=== PATIENT | female | born 1935 | race Caucasian/White ===

== ENCOUNTER 2022-06-05 17:31 | Inpatient (IN) | payer MEDICARE, OTHER ==
[~2022-06-05] VITALS: Ht 149.9 cm; Wt 124.9 kg
[2022-06-05 17:55] LABS: HEMATOCRIT 36.1 % (31.2-41.9); MEAN CORPUSCULAR HEMOGLOBIN 30.4 uug (24.7-32.8); MEAN CORPUSCULAR VOLUME 92.3 fL (75.5-95.3); PLATELET COUNT (AUTO) 162 K/uL (179-408)
[2022-06-05 17:57] LABS: CARBON DIOXIDE 32 mmol/L (21-32); CHLORIDE 101 mmol/L (98-107); CREATININE 0.9 mg/dL (0.6-1.3); GLUCOSE 214 mg/dL (74-106); POTASSIUM 4.5 mmol/L (3.5-5.1); UREA NITROGEN, BLOOD 23 mg/dL (7-18)
[2022-06-05 18:13] LABS: ALANINE AMINOTRANSFERASE 19 U/L (14-59); ALKALINE PHOSPHATASE 65 U/L (50-136); ASPARTATE AMINOTRANSFERASE 19 U/L (15-37); BILIRUBIN,DIRECT 0.4 mg/dL (0.0-0.2); BILIRUBIN,TOTAL 0.6 mg/dL (0.2-1.0); TOTAL PROTEIN, SERUM 6.9 g/dL (6.4-8.2)
[2022-06-05] MEDS ORDERED: NITROGLYCERIN OINT 1 GM PACKET TP ONE ×2 (18:15→18:36)
[2022-06-05] MEDS ORDERED: FUROSEMIDE 20 MG/2 ML VIAL IVP ONE (18:15)
[2022-06-05] MEDS ORDERED: ENOXAPARIN SODIUM 60 MG/0.6 ML DISP.SYRIN SQ ONE ×2 (18:30→18:37)
[2022-06-05] MEDS ORDERED: ASPIRIN 325 MG TABLET PO ONE (18:30)
[2022-06-05] MEDS ORDERED: FUROSEMIDE 40 MG/4 ML VIAL ONE (18:36)
[2022-06-05] MEDS ORDERED: ASPIRIN 325 MG TABLET ONE (18:37)
[2022-06-05] MEDS ORDERED: DEXT15DR6 EACHEYE (18:59)
[2022-06-05] MEDS ORDERED: LINA5TAB PO (18:59)
[2022-06-05] MEDS ORDERED: NITR0.4T48 SL (18:59)
[2022-06-05] MEDS ORDERED: ASPI81TA31 PO (18:59)
[2022-06-05] MEDS ORDERED: MAGN30OR PO (18:59)
[2022-06-05] MEDS ORDERED: INSU100V7 SQ (18:59)
[2022-06-05] MEDS ORDERED: MAGN400C PO (18:59)
[2022-06-05] MEDS ORDERED: FURO-152 PO (18:59)
[2022-06-05] MEDS ORDERED: CLON0.1T PO (18:59)
[2022-06-05] MEDS ORDERED: DICL1PAT13 TP (18:59)
[2022-06-05] MEDS ORDERED: POTA-58 PO (18:59)
[2022-06-05] MEDS ORDERED: FERR325T28 PO (18:59)
[2022-06-05] MEDS ORDERED: INSU100V39 SQ (18:59)
[2022-06-05] MEDS ORDERED: MULT-213 PO (18:59)
[2022-06-05] MEDS ORDERED: BISA10SU61 RC (18:59)
[2022-06-05] MEDS ORDERED: CALC500T52 PO (18:59)
[2022-06-05] MEDS ORDERED: CLOP75TA15 PO (18:59)
[2022-06-05] MEDS ORDERED: BUSP10TA3 PO (18:59)
[2022-06-05] MEDS ORDERED: ALBU1.25 NEB (18:59)
[2022-06-05] MEDS ORDERED: CARV3.122 PO (18:59)
[2022-06-05] MEDS ORDERED: RANO500T6 PO (18:59)
[2022-06-05] MEDS ORDERED: ACET-2154 PO (18:59)
[2022-06-05] MEDS ORDERED: MIRT-93 PO (18:59)
[2022-06-05] MEDS ORDERED: VOLTAREN GEL1% TP (18:59)
[2022-06-05] MEDS ORDERED: GABA-532 PO (18:59)
[2022-06-05] MEDS ORDERED: AMLO-212 PO (18:59)
--- NOTE | 2022-06-05 19:30 | NUR ---
Received report from Ivon GRAFF
[2022-06-05] MEDS ORDERED: ALBUTEROL SULFATE 1.25 MG/3 ML NEBU NEB PRN (19:45)
[2022-06-05] MEDS ORDERED: BISACODYL 10 MG SUPP.RECT RC PRN (19:45)
[2022-06-05] MEDS ORDERED: NITROGLYCERIN 0.4 MG/TAB BOTTLE SL PRN (19:45)
[2022-06-05] MEDS ORDERED: DEXTROSE 50% 50 ML DISP.SYRIN IV PRN (20:00)
[2022-06-05] MEDS ORDERED: MORPHINE SULFATE 2 MG/1 ML DISP.SYRIN IV PRN (20:00)
--- NOTE | 2022-06-05 20:25 | NUR ---
called 3rd floor for TELE bed. No bed assignment yet. Will call me back
--- NOTE | 2022-06-05 20:55 | NUR ---
dike supervisor Mariah GRAFF called, will call me back for patient's bed assignment
--- NOTE | 2022-06-05 21:15 | NUR ---
Patient will go to TELE room [address] Strickland
--- NOTE | 2022-06-05 21:17 | NUR ---
called [facility] to update Dr Strickland for critical lab value
--- NOTE | 2022-06-05 21:51 | NUR ---
report given to Antonia GRAFF
[2022-06-05 22:10] VITALS: BP 119/58
--- NOTE | 2022-06-05 22:10 | NUR ---
Admitted patient on Tele floor under the care of Dr Strickland, Patient alert oriented, no sob no chest pain, tele monitor, sinus rhythm with bbb, patient has no complain of pain, with right toes and feet wound with different stages of healing, with +1 edema, left foot has scab plus +1 edema, has dentures, patient has $300.00 marino, refused to surrender to staff for safe keeping, explained to patient the hospital not responsible when her money stolen or got lost for whatever reason.
--- NOTE | 2022-06-05 22:17 | NUR ---
Pt. admitted to TELE room 316, under care of Dr. Strickland Belongs List completed Tish RN, Uzair RN aware of patient's arrival
[2022-06-05] MEDS ORDERED: ACETAMINOPHEN 325 MG TABLET PO PRN (22:30)
[2022-06-05] MEDS: CARVEDILOL 3.125 MG TABLET PO SCH (22:44)
[2022-06-05] MEDS: MIRTAZAPINE 15 MG TABLET PO SCH (22:45)
[2022-06-05] MEDS: DOCUSATE SODIUM 100 MG CAPSULE PO SCH (22:45)
[2022-06-05] MEDS: BLOOD SUGAR DIAGNOSTIC 1 EACH STRIP VI SCH (22:51)
[2022-06-05] MEDS: RANOLAZINE 500 MG TAB.ER.12H PO SCH (22:52)
[2022-06-06] VITALS: BP 150/67
[2022-06-06 04:00] VITALS: BP 113/45
[2022-06-06] MEDS: BLOOD SUGAR DIAGNOSTIC 1 EACH STRIP VI SCH ×4 (06:50→20:38)
[2022-06-06 07:38] LABS: BILIRUBIN,TOTAL 0.6 mg/dL (0.2-1.0); CREATININE 0.9 mg/dL (0.6-1.3); MAGNESIUM 1.7 mg/dL (1.8-2.4); PHOSPHOROUS 4.2 mg/dL (2.5-4.9); TOTAL PROTEIN, SERUM 6.3 g/dL (6.4-8.2)
--- NOTE | 2022-06-06 08:19 | NUR ---
Critical troponin reported by lab, critical elevated 79. Downward trending from previous lab draw.
[2022-06-06 08:27] LABS: HEMATOCRIT 33.6 % (31.2-41.9); MEAN CORPUSCULAR VOLUME 92.7 fL (75.5-95.3); PLATELET COUNT (AUTO) 140 K/uL (179-408)
[2022-06-06] MEDS ORDERED: FUROSEMIDE 40 MG/4 ML VIAL IV SCH (09:00)
[2022-06-06] MEDS: busPIRone 10 MG TABLET PO SCH ×3 (09:13→17:00)
[2022-06-06] MEDS: MULTIVITAMINS,THERAPEUTIC TABLET PO SCH (09:13)
[2022-06-06] MEDS: GABAPENTIN 100 MG CAPSULE PO SCH (09:13)
[2022-06-06] MEDS: CLOPIDOGREL 75 MG TABLET PO SCH (09:13)
[2022-06-06] MEDS: RANOLAZINE 500 MG TAB.ER.12H PO SCH ×2 (09:13→20:32)
[2022-06-06] MEDS: ASPIRIN 81 MG TAB.CHEW PO SCH (09:13)
[2022-06-06] MEDS: CALCIUM CARBONATE 500 MG TABLET PO SCH (09:13)
[2022-06-06 09:15] VITALS: BP 126/65
[2022-06-06] MEDS: AMLODIPINE 5 MG TABLET PO SCH (09:16)
[2022-06-06] MEDS: CARVEDILOL 3.125 MG TABLET PO SCH ×2 (09:17→17:01)
[2022-06-06] MEDS: INSULIN REGULAR, HUMAN 300 UNIT/3 ML VIAL SQ PRN ×4 (09:18→20:38)
--- NOTE | 2022-06-06 09:32 | NUR ---
Pt is a/o x 3-4, presenting with sinus rhythm with bundle branch block on telemetry. SpO2 99% on 3L nasal cannula, titrated to 2L NC SpO2 98%. Will continue to monitor and titrate as tolerated.
[2022-06-06] MEDS ORDERED: MAGNESIUM OXIDE 400 MG TABLET PO ONE (09:45)
[2022-06-06] MEDS ORDERED: FUROSEMIDE 20 MG/2 ML VIAL IV ONE (10:30)
--- NOTE | 2022-06-06 11:09 | NUR ---
Pt is on diuretics, per MD order inserted agosto catheter.
[2022-06-06 12:03] VITALS: BP 118/58
[2022-06-06 12:42] LABS: THYROID STIMULATING HORMONE 0.814 mIU/mL (0.358-3.740)
[2022-06-06 16:26] VITALS: BP 124/60
--- NOTE | 2022-06-06 16:45 | NUR ---
Laurent reported both nares positive for MRSA. MD Notified.
[2022-06-06] MEDS: FUROSEMIDE 40 MG/4 ML VIAL IV SCH (17:00)
--- NOTE | 2022-06-06 19:30 | NUR ---
Received patient lying in bed. In no acute distress. Denies any pain or SOB at this time. On O2 at 2LPM via NC in place. O2 sat at 99%. NSR on tele with HR of 85/min. MRSA precaution observed. Granger catheter intact and draining via gravity. Needs assessed and attended to. Safety measure initiated and call light within reached.
[2022-06-06 20:00] VITALS: BP 126/73
[2022-06-06] MEDS: MIRTAZAPINE 15 MG TABLET PO SCH (20:32)
[2022-06-06] MEDS: DOCUSATE SODIUM 100 MG CAPSULE PO SCH (20:32)
[2022-06-06] MEDS: MUPIROCIN 2% OINT 22 GM TUBE NS SCH (20:32)
[2022-06-07 00:03] VITALS: BP 128/58
[2022-06-07 04:39] VITALS: BP 123/62
--- NOTE | 2022-06-07 05:29 | NUR ---
In no acute distress. NSR on tele with HR of 75/min. Granger catheter intact and draining via gravity. Needs attended to and met. Safety measure maintained and call light within reached.
[2022-06-07] MEDS: BLOOD SUGAR DIAGNOSTIC 1 EACH STRIP VI SCH ×4 (06:31→20:26)
[2022-06-07 07:49] LABS: CREATININE 0.8 mg/dL (0.6-1.3); MAGNESIUM 1.7 mg/dL (1.8-2.4); PHOSPHOROUS 4.2 mg/dL (2.5-4.9); POTASSIUM 4.5 mmol/L (3.5-5.1)
[2022-06-07] MEDS: FUROSEMIDE 40 MG/4 ML VIAL IV SCH ×2 (08:57→17:02)
[2022-06-07 09:01] LABS: HEMATOCRIT 31.6 % (31.2-41.9); MEAN CORPUSCULAR VOLUME 92.2 fL (75.5-95.3); PLATELET COUNT (AUTO) 141 K/uL (179-408)
[2022-06-07] MEDS: ASPIRIN 81 MG TAB.CHEW PO SCH (09:01)
[2022-06-07] MEDS: CARVEDILOL 3.125 MG TABLET PO SCH ×2 (09:01→17:02)
[2022-06-07] MEDS: RANOLAZINE 500 MG TAB.ER.12H PO SCH ×2 (09:02→20:21)
[2022-06-07] MEDS: CALCIUM CARBONATE 500 MG TABLET PO SCH (09:02)
[2022-06-07] MEDS: GABAPENTIN 100 MG CAPSULE PO SCH (09:02)
[2022-06-07] MEDS: busPIRone 10 MG TABLET PO SCH ×3 (09:02→17:02)
[2022-06-07] MEDS: MULTIVITAMINS,THERAPEUTIC TABLET PO SCH (09:02)
[2022-06-07] MEDS: AMLODIPINE 5 MG TABLET PO SCH (09:02)
[2022-06-07] MEDS: CLOPIDOGREL 75 MG TABLET PO SCH (09:02)
[2022-06-07] MEDS: MUPIROCIN 2% OINT 22 GM TUBE NS SCH ×2 (09:18→20:26)
[2022-06-07] MEDS ORDERED: MAGNESIUM OXIDE 400 MG TABLET PO ONE (11:00)
[2022-06-07] MEDS: INSULIN REGULAR, HUMAN 300 UNIT/3 ML VIAL SQ PRN ×3 (11:46→20:28)
[2022-06-07 12:00] VITALS: BP 114/46
--- NOTE | 2022-06-07 15:30 | NUR ---
Patient c/o SOB, 02 sats 95% on 2L. Breathing is shallow, deep pursed lip breathing teaching provided, able to demonstrate back. patient 02 increased to 3L per patient request and breathing treatment requested to RT.
[2022-06-07 16:00] VITALS: BP 126/68
--- NOTE | 2022-06-07 16:53 | NUR ---
Patient SOB is improved, 02 sats 99 on 3L via NC.
[2022-06-07] MEDS: GLUCERNA SHAKE 237 ML CAN PO SCH (17:02)
[2022-06-07] MEDS: MAGNESIUM SULFATE/D5W 100 ML IV SCH ×2 (17:04→19:15)
[2022-06-07] MEDS ORDERED: METOLAZONE 2.5 MG TABLET PO ONE (17:30)
--- NOTE | 2022-06-07 19:35 | NUR ---
Received patient lying in bed. Family at bedside. In no acute distress. Denies any pain or SOB at this time. On O2 at 3LPM via NC in place. NSR on tele with HR of 98/min. IV site on left wrist area intact and patent. Magnesium infusing. MRSA precaution observed. Granger catheter intact and draining via gravity. Needs assessed and attended to. Safety measure initiated and call light within reached.
[2022-06-07 20:08] VITALS: BP 123/57
[2022-06-07] MEDS: DOCUSATE SODIUM 100 MG CAPSULE PO SCH (20:21)
[2022-06-07] MEDS: MIRTAZAPINE 15 MG TABLET PO SCH (20:21)
[2022-06-08 00:43] VITALS: BP 117/59
[2022-06-08 04:42] VITALS: BP 127/58
--- NOTE | 2022-06-08 06:14 | NUR ---
Patient slept well during the night. In no acute distress. NSR on tele with HR of 85/min. Granger catheter intact and draining via gravity. Needs attended to and met. Safety measure maintained and call light within reached.
[2022-06-08] MEDS: BLOOD SUGAR DIAGNOSTIC 1 EACH STRIP VI SCH ×4 (06:37→20:17)
[2022-06-08 07:12] LABS: CREATININE 0.8 mg/dL (0.6-1.3); MAGNESIUM 1.9 mg/dL (1.8-2.4); PHOSPHOROUS 3.5 mg/dL (2.5-4.9); POTASSIUM 3.5 mmol/L (3.5-5.1)
[2022-06-08] MEDS ORDERED: METOLAZONE 2.5 MG TABLET PO ONE (08:45)
[2022-06-08] MEDS: FUROSEMIDE 40 MG/4 ML VIAL IV SCH ×2 (09:10→16:36)
[2022-06-08] MEDS: GABAPENTIN 100 MG CAPSULE PO SCH (09:11)
[2022-06-08] MEDS: MULTIVITAMINS,THERAPEUTIC TABLET PO SCH (09:11)
[2022-06-08] MEDS: CALCIUM CARBONATE 500 MG TABLET PO SCH (09:12)
[2022-06-08] MEDS: CLOPIDOGREL 75 MG TABLET PO SCH (09:12)
[2022-06-08] MEDS: RANOLAZINE 500 MG TAB.ER.12H PO SCH ×2 (09:12→20:04)
[2022-06-08] MEDS: ASPIRIN 81 MG TAB.CHEW PO SCH (09:12)
[2022-06-08] MEDS: busPIRone 10 MG TABLET PO SCH ×3 (09:12→16:36)
[2022-06-08] MEDS: CARVEDILOL 3.125 MG TABLET PO SCH ×2 (09:12→16:36)
[2022-06-08] MEDS: AMLODIPINE 5 MG TABLET PO SCH (09:12)
[2022-06-08] MEDS: GLUCERNA SHAKE 237 ML CAN PO SCH ×2 (09:13→16:37)
[2022-06-08] MEDS: MUPIROCIN 2% OINT 22 GM TUBE NS SCH ×2 (09:13→20:12)
[2022-06-08] MEDS: INSULIN REGULAR, HUMAN 300 UNIT/3 ML VIAL SQ PRN ×4 (09:24→20:19)
[2022-06-08 09:25] LABS: HEMATOCRIT 32.4 % (31.2-41.9); MEAN CORPUSCULAR HEMOGLOBIN 30.7 uug (24.7-32.8); MEAN CORPUSCULAR VOLUME 91.8 fL (75.5-95.3); PLATELET COUNT (AUTO) 145 K/uL (179-408)
[2022-06-08 12:00] VITALS: BP 109/55
[2022-06-08 16:00] VITALS: BP 112/51
--- NOTE | 2022-06-08 17:04 | NUR ---
Patient is alert and oriented *4. Denies any pain. Able to ambulate a few feet with PT with assistance and walker, also participates with OT. On 2L 02 via NC, improved SOB noted as compared to 06/07/22 am shift. Denies any chest pain. On telemetry, vpacing with HR in the 80's and occasional bundle branch block. with HR in the 80's. Granger catheter in place, draining clear yellow urine. Call light within reach, All needs attended.
--- NOTE | 2022-06-08 19:35 | NUR ---
Patient alert oriented, no sob no chest pain when at rest, still complain of swelling of the leg and thighs, kept leg elevated with pillow, denies pain at this time, unable to lay flat, short of breath, cont to monitor,
[2022-06-08 20:00] VITALS: BP 149/76
[2022-06-08] MEDS: DOCUSATE SODIUM 100 MG CAPSULE PO SCH (20:02)
[2022-06-08] MEDS: MIRTAZAPINE 15 MG TABLET PO SCH (20:02)
[2022-06-09] VITALS: BP 113/46
[2022-06-09 04:00] VITALS: BP 134/64
[2022-06-09] MEDS: BLOOD SUGAR DIAGNOSTIC 1 EACH STRIP VI SCH ×4 (06:00→20:58)
--- NOTE | 2022-06-09 06:40 | NUR ---
Patient alert oriented, no sob no chest pain, tele monitor sinus rhythm, v pacing no complain of pain, still on 2 liters of oxygen, unable to lay flat in bed short of breath, kept hob elevated 35 to 45 degrees, denies pain at this time, cont to monitor.
[2022-06-09 07:16] LABS: HEMATOCRIT 32.1 % (31.2-41.9); MEAN CORPUSCULAR HEMOGLOBIN 30.1 uug (24.7-32.8); MEAN CORPUSCULAR VOLUME 90.9 fL (75.5-95.3); PLATELET COUNT (AUTO) 143 K/uL (179-408)
[2022-06-09 07:28] LABS: CREATININE 0.9 mg/dL (0.6-1.3); MAGNESIUM 1.6 mg/dL (1.8-2.4); PHOSPHOROUS 3.5 mg/dL (2.5-4.9)
--- NOTE | 2022-06-09 07:30 | NUR ---
Received pt. AAOX4. vitals stable on sinus rhythm V- pacing. No IV access. Will continue to monitor.
[2022-06-09] MEDS: MUPIROCIN 2% OINT 22 GM TUBE NS SCH ×2 (08:54→21:00)
[2022-06-09] MEDS: ASPIRIN 81 MG TAB.CHEW PO SCH (08:54)
[2022-06-09] MEDS: CALCIUM CARBONATE 500 MG TABLET PO SCH (08:54)
[2022-06-09] MEDS: GLUCERNA SHAKE 237 ML CAN PO SCH ×2 (08:54→17:17)
[2022-06-09] MEDS: MULTIVITAMINS,THERAPEUTIC TABLET PO SCH (08:54)
[2022-06-09] MEDS: GABAPENTIN 100 MG CAPSULE PO SCH (08:55)
[2022-06-09] MEDS: CLOPIDOGREL 75 MG TABLET PO SCH (08:55)
[2022-06-09] MEDS: AMLODIPINE 5 MG TABLET PO SCH (08:55)
[2022-06-09] MEDS: CARVEDILOL 3.125 MG TABLET PO SCH ×2 (08:56→17:19)
[2022-06-09] MEDS: busPIRone 10 MG TABLET PO SCH ×3 (08:56→17:14)
[2022-06-09] MEDS: RANOLAZINE 500 MG TAB.ER.12H PO SCH ×2 (08:58→20:57)
[2022-06-09] MEDS ORDERED: POTASSIUM CHLORIDE 20 MEQ POWDER PACKET PO ONE ×2 (10:00→13:00)
[2022-06-09] MEDS ORDERED: MAGNESIUM OXIDE 400 MG TABLET PO ONE (10:00)
[2022-06-09] MEDS: FUROSEMIDE 40 MG/4 ML VIAL IV SCH ×2 (10:53→17:15)
[2022-06-09] MEDS: INSULIN REGULAR, HUMAN 300 UNIT/3 ML VIAL SQ PRN ×3 (11:44→21:00)
[2022-06-09 12:00] VITALS: BP 141/68
[2022-06-09] MEDS ORDERED: DICLOFENAC 25 MG TABLET.DR PO SCH (12:00)
[2022-06-09] MEDS ORDERED: LIDOCAINE 5% PATCH TD SCH (13:00)
[2022-06-09] MEDS ORDERED: EMPA25TA PO (15:40)
[2022-06-09] MEDS ORDERED: FURO-151 PO (15:40)
[2022-06-09 16:10] VITALS: BP 110/56
--- NOTE | 2022-06-09 16:54 | NUR ---
DCD instructions given to patient who verbalized understanding. Patient AAOX4. and able to sign all the documentation. With belongings a total of $365 was documented. Nursing office called to retrieved the money, since there it no deposit receipt in the Pt's file. As per food beverage supervisor there's no money in the safety under pt's name. Patient questioned about the money and as stated by patient "my nice took the money and my other belongings home". and she signed the belongings list Della MENTAL HEALTH NURSE witness pt's statement. food beverage supervisor informed. and attempts to contact her niece at to inquire pt's statements message left. `
[2022-06-09] MEDS ORDERED: DICLOFENAC 1.3% TOP SCH (17:00)
[2022-06-09] MEDS ORDERED: [UNRECOGNIZED DRUG - OTHER] TOP SCH (17:00)
--- NOTE | 2022-06-09 19:44 | NUR ---
per David Herrera, Pt will not be discharged tonight per case monitor; she informed Ankur Rhoades. pt apparently med surg status.
[2022-06-09 20:11] VITALS: BP 133/73
[2022-06-09] MEDS: DOCUSATE SODIUM 100 MG CAPSULE PO SCH (20:57)
[2022-06-09] MEDS: MIRTAZAPINE 15 MG TABLET PO SCH (20:57)
[2022-06-10 04:41] VITALS: BP 139/68
--- NOTE | 2022-06-10 06:14 | NUR ---
unable to weigh pt for now; it says 278lbd ; pt does not look she weighs 278lbs; will transfer to chair and zero bed and weigh pt.
[2022-06-10] MEDS: BLOOD SUGAR DIAGNOSTIC 1 EACH STRIP VI SCH (06:32)
[2022-06-10] MEDS: FUROSEMIDE 40 MG/4 ML VIAL IV SCH (08:31)
[2022-06-10] MEDS: MULTIVITAMINS,THERAPEUTIC TABLET PO SCH (08:32)
[2022-06-10] MEDS: CALCIUM CARBONATE 500 MG TABLET PO SCH (08:32)
[2022-06-10] MEDS: RANOLAZINE 500 MG TAB.ER.12H PO SCH (08:32)
[2022-06-10] MEDS: ASPIRIN 81 MG TAB.CHEW PO SCH (08:32)
[2022-06-10] MEDS: GABAPENTIN 100 MG CAPSULE PO SCH (08:32)
[2022-06-10 08:33] VITALS: BP 123/59
[2022-06-10] MEDS: CARVEDILOL 3.125 MG TABLET PO SCH (08:33)
[2022-06-10] MEDS: AMLODIPINE 5 MG TABLET PO SCH (08:33)
[2022-06-10] MEDS: busPIRone 10 MG TABLET PO SCH (08:33)
[2022-06-10] MEDS: CLOPIDOGREL 75 MG TABLET PO SCH (08:36)
[2022-06-10] MEDS: GLUCERNA SHAKE 237 ML CAN PO SCH (08:36)
[2022-06-10] MEDS: MUPIROCIN 2% OINT 22 GM TUBE NS SCH (08:36)
[2022-06-10] MEDS: INSULIN REGULAR, HUMAN 300 UNIT/3 ML VIAL SQ PRN (08:37)
[2022-06-10 08:46] LABS: CREATININE 0.7 mg/dL (0.6-1.3); MAGNESIUM 1.7 mg/dL (1.8-2.4); POTASSIUM 3.3 mmol/L (3.5-5.1)
--- NOTE | 2022-06-10 09:00 | NUR ---
awake alert and oriented, no distress noted, on 2l/nc sat at 96%, aware that she is going to SNF today, needs attended, safety measures maintained
--- NOTE | 2022-06-10 10:30 | NUR ---
readied for discharge, midline on right upper arm removed- no swelling/redness noted on site, all belongings with her, report called to Tawana at [facility],
--- NOTE | 2022-06-10 10:45 | NUR ---
taken per ambulance in stable condition with all belongings
== END 2022-06-10 10:45 | DRG 280 ==
LOC: ER 17:38 → TELE3 21:57 → MEDSURG3 06-09 19:49
PROVIDERS: ADMIT Internal Medicine; ATTEND Nurse Practitioner Acute Care
PROC: 05H533Z Insertion of Infusion Device into Right Subclavian Vein, Percutaneous Approach (ICD-10-PCS; principal; 2022-06-09)
PROC: B546ZZA Ultrasonography of Right Subclavian Vein, Guidance (ICD-10-PCS; 2022-06-09)
DX: I11.0 Hypertensive heart disease with heart failure (principal); I50.41 Acute combined systolic (congestive) and diastolic (congestive) heart failure; I21.A1 Myocardial infarction type 2; D68.69 Other thrombophilia; J96.10 Chronic respiratory failure, unspecified whether with hypoxia or hypercapnia; I25.10 Atherosclerotic heart disease of native coronary artery without angina pectoris; I48.91 Unspecified atrial fibrillation; E78.5 Hyperlipidemia, unspecified; I25.2 Old myocardial infarction; I25.5 Ischemic cardiomyopathy; Z20.822 Contact with and (suspected) exposure to COVID-19; Z95.1 Presence of aortocoronary bypass graft; Z95.0 Presence of cardiac pacemaker; Z79.4 Long term (current) use of insulin; E11.40 Type 2 diabetes mellitus with diabetic neuropathy, unspecified; Z98.61 Coronary angioplasty status; I44.7 Left bundle-branch block, unspecified; M19.90 Unspecified osteoarthritis, unspecified site; Z74.09 Other reduced mobility; R53.1 Weakness; E11.51 Type 2 diabetes mellitus with diabetic peripheral angiopathy without gangrene; R91.8 Other nonspecific abnormal finding of lung field
CPT/HCPCS: 36415; 71045; 83735; 84100; 84443; 84484; 85025; 85730; 93005; 93307; 94664; 97161; A4663; G0378; J1650; J1815; J1940; J3475

== ENCOUNTER 2022-07-11 15:18 | Inpatient (IN) | payer MEDICARE, OTHER ==
[~2022-07-11] VITALS: Ht 152.4 cm; Wt 68.0 kg
[~2022-07-11 15:18] MED LIST: ACET-2154 PO; ALBU1.25 NEB; AMLO-212 PO; ASPI81TA31 PO; BISA10SU61 RC; BUSP10TA3 PO; CALC500T52 PO; CARV3.122 PO; CLON0.1T PO; CLOP75TA15 PO; DEXT15DR6 EACHEYE; DICL1PAT13 TP; EMPA25TA PO; FERR325T28 PO; FURO-151 PO; GABA-532 PO; INSU100V39 SQ; INSU100V7 SQ; LINA5TAB PO; MAGN30OR PO; MAGN400C PO; MIRT-93 PO; MULT-213 PO; NITR0.4T48 SL; POTA-58 PO; RANO500T6 PO; VOLTAREN GEL1% TP
[2022-07-11 15:52] LABS: HEMATOCRIT 36.3 % (31.2-41.9); MEAN CORPUSCULAR HEMOGLOBIN 31.2 uug (24.7-32.8); PLATELET COUNT (AUTO) 160 K/uL (179-408)
[2022-07-11 15:58] LABS: CREATININE 1.1 mg/dL (0.6-1.3); POTASSIUM 4.1 mmol/L (3.5-5.1)
[2022-07-11 16:11] LABS: BILIRUBIN,TOTAL 0.7 mg/dL (0.2-1.0); TOTAL PROTEIN, SERUM 6.9 g/dL (6.4-8.2)
[2022-07-11] MEDS ORDERED: PREG75CA PO (16:14)
[2022-07-11] MEDS ORDERED: TRAM50TA2 PO (16:14)
[2022-07-11] MEDS ORDERED: LISI10TA29 PO (16:14)
[2022-07-11] MEDS ORDERED: CILO100T PO (16:14)
[2022-07-11] MEDS ORDERED: SITA100T PO (16:14)
[2022-07-11] MEDS ORDERED: INSU100V39 SQ (16:14)
[2022-07-11] MEDS ORDERED: FUROSEMIDE 40 MG/4 ML VIAL IV ONE (16:45)
--- NOTE | 2022-07-11 17:00 | NUR ---
placed IV 22g left hand.
[2022-07-11] MEDS ORDERED: MORPHINE SULFATE 2 MG/1 ML DISP.SYRIN IV ONE (17:30)
[2022-07-11] MEDS ORDERED: ONDANSETRON 4 MG/2 ML VIAL IV ONE (17:30)
[2022-07-11] MEDS ORDERED: MAGNESIUM SULFATE/D5W 100 ML ONE ×2 (17:32→22:01)
[2022-07-11] MEDS ORDERED: FUROSEMIDE 40 MG/4 ML VIAL ONE (17:32)
[2022-07-11] MEDS ORDERED: HYDROCODONE/APAP 5-325MG TABLET ONE (17:33)
[2022-07-11] MEDS ORDERED: HYDROCODONE/APAP 5-325MG TABLET PO ONE (17:45)
[2022-07-11] MEDS: MAGNESIUM SULFATE/D5W 100 ML IV SCH ×2 (17:50→22:07)
[2022-07-11] MEDS ORDERED: MAGNESIUM HYDROXIDE 30 ML LIQUID UDC PO PRN (18:45)
--- NOTE | 2022-07-11 19:34 | NUR ---
pt awake alert denies pain.
--- NOTE | 2022-07-11 20:55 | NUR ---
Received report from Enio GRAFF
--- NOTE | 2022-07-11 20:55 | NUR ---
report given to Yumiko GRAFF pt will go to room 311.
--- NOTE | 2022-07-11 21:44 | NUR ---
pt transported to room 311 via [facility] with all belongings. DAJUAN Calderon at bedside to receive the pt.
[2022-07-11 21:51] VITALS: BP 108/56
[2022-07-11] MEDS: ENOXAPARIN SODIUM 40 MG/0.4 ML DISP.SYRIN SQ SCH (22:08)
[2022-07-12] MEDS: HYDROCODONE/APAP 5-325MG TABLET PO PRN ×2 (00:19→20:29)
[2022-07-12 00:20] VITALS: BP 94/48
[2022-07-12] MEDS: PANTOPRAZOLE SODIUM 40 MG TABLET.DR PO SCH (07:00)
--- NOTE | 2022-07-12 08:00 | NUR ---
AWAKE ALERT AND ORIENTED X3, DENIES PAIN OR RESPIRATORY DISTRESS, RA SATURATING 99%. SR ON MONITOR
[2022-07-12 08:11] LABS: HEMATOCRIT 36.6 % (31.2-41.9); MEAN CORPUSCULAR HEMOGLOBIN 31.3 uug (24.7-32.8); MEAN CORPUSCULAR VOLUME 97.4 fL (75.5-95.3); PLATELET COUNT (AUTO) 141 K/uL (179-408)
[2022-07-12 08:49] LABS: CREATININE 1.1 mg/dL (0.6-1.3); MAGNESIUM 2.8 mg/dL (1.8-2.4); POTASSIUM 4.2 mmol/L (3.5-5.1)
[2022-07-12] MEDS: FUROSEMIDE 40 MG/4 ML VIAL IV SCH ×2 (09:38→20:27)
--- NOTE | 2022-07-12 09:39 | NUR ---
protonix given by addressing machine operator
[2022-07-12] MEDS ORDERED: BISACODYL 10 MG SUPP.RECT RC PRN (12:15)
[2022-07-12] MEDS ORDERED: DEXTROSE 50% 50 ML DISP.SYRIN IV PRN (12:30)
[2022-07-12] MEDS: busPIRone 10 MG TABLET PO SCH ×2 (12:39→16:36)
--- NOTE | 2022-07-12 12:54 | NUR ---
NO ACUTE CHANGE FROM MORNING ASSESSMENT
[2022-07-12] MEDS ORDERED: MAGN400O6 PO (14:03)
[2022-07-12] MEDS ORDERED: BISA10SU61 RC (14:06)
[2022-07-12 15:56] VITALS: BP 96/43
[2022-07-12] MEDS: BLOOD SUGAR DIAGNOSTIC 1 EACH STRIP VI SCH ×2 (16:36→21:03)
[2022-07-12] MEDS: FERROUS SULFATE 325 MG TABEC PO SCH (16:36)
[2022-07-12] MEDS: INSULIN REGULAR, HUMAN 300 UNIT/3 ML VIAL SQ PRN ×2 (16:37→20:37)
[2022-07-12] MEDS ORDERED: CILOSTAZOL 100 MG TABLET PO SCH (17:00)
[2022-07-12] MEDS ORDERED: RANOLAZINE 500 MG TAB.ER.12H PO SCH (17:00)
[2022-07-12] MEDS: MIRTAZAPINE 15 MG TABLET PO SCH (17:04)
[2022-07-12 20:18] VITALS: BP 119/52
[2022-07-12] MEDS: ENOXAPARIN SODIUM 40 MG/0.4 ML DISP.SYRIN SQ SCH (20:27)
[2022-07-12] MEDS: INSULIN GLARGINE,HUM 300 UNITS/3 ML CARTRIDGE SQ SCH (21:04)
[2022-07-12] MEDS: LIDOCAINE 5% PATCH TD SCH (21:31)
--- NOTE | 2022-07-13 00:25 | NUR ---
patient extremely agiated; pt pulling out lines and attempting to jump out of bed; CIWA 18 previously had ativan; pt placed on melanie wrist restraints; referred to acute care nurse practitioner; Felipa Leavitt NP ordered melanie restraints and one dose of Haldol 5 mg IM; orders carried out and administered Haldol Addendum: 07/13/22 at 0029 by CHRISTIE MATTHEWS RN not for this patient.
[2022-07-13 00:46] VITALS: BP 112/51
[2022-07-13 04:22] VITALS: BP 127/66
[2022-07-13] MEDS: PANTOPRAZOLE SODIUM 40 MG TABLET.DR PO SCH (06:37)
[2022-07-13] MEDS: BLOOD SUGAR DIAGNOSTIC 1 EACH STRIP VI SCH ×4 (07:10→21:45)
--- NOTE | 2022-07-13 08:00 | NUR ---
AWAKE ALERT AND VERBALLY RESPONSIVE, COOPERATIVE AND ABLE TO VERBALIZE NEEDS WELL. CONTINUE TELE STATUS, SR ON MONITOR
[2022-07-13] MEDS: INSULIN REGULAR, HUMAN 300 UNIT/3 ML VIAL SQ PRN ×3 (08:16→21:48)
[2022-07-13] MEDS: FUROSEMIDE 40 MG/4 ML VIAL IV SCH ×2 (08:17→20:02)
[2022-07-13] MEDS: TRAMADOL HCL 50 MG TABLET PO PRN (08:18)
[2022-07-13] MEDS: FERROUS SULFATE 325 MG TABEC PO SCH ×2 (08:18→16:52)
[2022-07-13] MEDS: busPIRone 10 MG TABLET PO SCH ×3 (08:18→16:52)
[2022-07-13] MEDS: MULTIVIT, IRON, MIN NO. 8, FA TABLET PO SCH (08:29)
[2022-07-13] MEDS: CALCIUM CARBONATE 500 MG TABLET PO SCH (08:29)
[2022-07-13] MEDS: LIDOCAINE 5% PATCH TD SCH (08:29)
[2022-07-13] MEDS: LINAGLIPTIN 5 MG TABLET PO SCH (08:29)
[2022-07-13] MEDS: CLOPIDOGREL 75 MG TABLET PO SCH (08:29)
[2022-07-13] MEDS: CILOSTAZOL 100 MG TABLET PO SCH (08:30)
[2022-07-13] MEDS: ASPIRIN 81 MG TAB.CHEW PO SCH (08:32)
[2022-07-13] MEDS ORDERED: Medication Not On Formulary EA (Multivitamins W-Minerals (Multivitamin With Minerals) 1 PO SCH (09:00)
[2022-07-13] MEDS ORDERED: GABAPENTIN 100 MG CAPSULE PO SCH (09:00)
--- NOTE | 2022-07-13 10:22 | NUR ---
WOUND CARE CONSULT: PT PRESENTS WITH DRY WOUND TO RT HEEL, BLISTERS (INTACT) TO RT ANKLE/LOWER LEG AREA AND DRY WOUNDS TO TOES, ALL PRESENT ON ADMISSION. DR BARKER NOTIFIED OF DPM CONSULT REQUEST. DISCUSSED SKIN PROTECTION WITH NURSING STAFF. MD IN AGREEMENT WITH PLAN OF CARE.
[2022-07-13 11:27] LABS: MEAN CORPUSCULAR HEMOGLOBIN 31.6 uug (24.7-32.8); PLATELET COUNT (AUTO) 147 K/uL (179-408)
[2022-07-13 11:34] LABS: BILIRUBIN,TOTAL 0.7 mg/dL (0.2-1.0); CREATININE 1.2 mg/dL (0.6-1.3); MAGNESIUM 2.1 mg/dL (1.8-2.4); POTASSIUM 3.7 mmol/L (3.5-5.1); TOTAL PROTEIN, SERUM 6.3 g/dL (6.4-8.2)
[2022-07-13 12:00] VITALS: BP 109/52
--- NOTE | 2022-07-13 12:00 | NUR ---
NO ACUTE CHANGE FROM MORNING ASSESSMENT
[2022-07-13 16:00] VITALS: BP 116/59
[2022-07-13] MEDS: MIRTAZAPINE 15 MG TABLET PO SCH (17:25)
--- NOTE | 2022-07-13 18:09 | NUR ---
DR HERNANDEZ NOTIFIED OF HR SUSTAINING AT 150, BP 111/63-116/69, HR 149-150, DENIES CHEST PAIN, O2 SAT 100% ON 2L NC. AWAITING CALL BACK
--- NOTE | 2022-07-13 18:27 | NUR ---
DR RICK CALLED BACK AND ADVISE TO START AMIODARONE DRIP PER PROTOCOL
--- NOTE | 2022-07-13 18:52 | NUR ---
PATIENT REMAINS ASYMPTOMATIC, WILL START AMIODARONE DRIP PER PROTOCOL. HR SUSTAINING ON 150/MIN
[2022-07-13] MEDS ORDERED: AMIODARONE HCL IV 150 MG in IV DEXTROSE 5% 100 ML IV ONE (19:00)
--- NOTE | 2022-07-13 19:00 | NUR ---
rounds made day shift RN at bedside and as per RN she just started patient on amiodarone drip to follow amiodarone drip per protocol c/o svt DR:RAFAEL was notified and md is aware .patient in bed denies chest pain when asked.Granger catheter to bsd . 02 nasal cannula at 2 l/min .
[2022-07-13] MEDS: AMIODARONE HCL IV 450 MG in IV DEXTROSE 5% 250 ML IV PRN (19:13)
--- NOTE | 2022-07-13 19:30 | NUR ---
rounds made patient in bed awake alert , verbally responsive . patient complaining at the AIR condition in her room is not working ,noted to be sob upon exertion and patient is so anxious . provided electric fan . patient verbalized she feels better .
[2022-07-13 20:32] VITALS: BP 103/58
[2022-07-13] MEDS: INSULIN GLARGINE,HUM 300 UNITS/3 ML CARTRIDGE SQ SCH (21:44)
[2022-07-13] MEDS: ENOXAPARIN SODIUM 40 MG/0.4 ML DISP.SYRIN SQ SCH (21:45)
--- NOTE | 2022-07-13 23:30 | NUR ---
patient incontinent of stool soft moderate in amt ,with cnas help cleaned patient chnaged soiled linens and gown ,turned and reposition .
[2022-07-14 00:35] VITALS: BP 103/51
--- NOTE | 2022-07-14 00:38 | NUR ---
called respiratory therapist patient noted to be wheezing ,sob upon exertion , on o2 at 2 liter/min .respiratory therapist came and gave patient breathing treatment .
[2022-07-14] MEDS: ALBUTEROL SULFATE 1.25 MG/3 ML NEBU NEB PRN ×2 (00:44→19:54)
[2022-07-14 04:27] VITALS: BP 107/48
[2022-07-14] MEDS: PANTOPRAZOLE SODIUM 40 MG TABLET.DR PO SCH (06:08)
[2022-07-14] MEDS: AMIODARONE HCL IV 450 MG in IV DEXTROSE 5% 250 ML IV PRN ×2 (06:18→21:44)
[2022-07-14] MEDS: BLOOD SUGAR DIAGNOSTIC 1 EACH STRIP VI SCH ×4 (06:47→20:42)
[2022-07-14 07:17] LABS: HEMATOCRIT 37.7 % (31.2-41.9); MEAN CORPUSCULAR HEMOGLOBIN 31.5 uug (24.7-32.8); MEAN CORPUSCULAR VOLUME 95.3 fL (75.5-95.3); PLATELET COUNT (AUTO) 154 K/uL (179-408)
[2022-07-14] MEDS: INSULIN REGULAR, HUMAN 300 UNIT/3 ML VIAL SQ PRN ×3 (07:47→20:49)
[2022-07-14 07:59] LABS: CARBON DIOXIDE 27 mmol/L (21-32); CHLORIDE 97 mmol/L (98-107); CREATININE 1.4 mg/dL (0.6-1.3); GLUCOSE 207 mg/dL (74-106); POTASSIUM 4.4 mmol/L (3.5-5.1); UREA NITROGEN, BLOOD 45 mg/dL (7-18)
[2022-07-14 08:00] VITALS: BP 119/60
[2022-07-14 08:00] LABS: BILIRUBIN,TOTAL 1.2 mg/dL (0.2-1.0)
--- NOTE | 2022-07-14 08:00 | NUR ---
AWAKE ALERT AND VERBALLY RESPONSIVE, APPROPRIATE WITH RESPONSES. NO SS OF RESPIRATORY DISTRESS, CONTINUE WITH PAIN MANAGEMENT ORDERED
[2022-07-14 08:01] LABS: ALANINE AMINOTRANSFERASE 16 U/L (14-59); ALKALINE PHOSPHATASE 65 U/L (50-136); ASPARTATE AMINOTRANSFERASE 68 U/L (15-37)
[2022-07-14 08:02] LABS: MAGNESIUM 2.1 mg/dL (1.8-2.4)
[2022-07-14] MEDS: busPIRone 10 MG TABLET PO SCH ×3 (08:05→16:20)
[2022-07-14] MEDS: MULTIVIT, IRON, MIN NO. 8, FA TABLET PO SCH (08:05)
[2022-07-14] MEDS: ASPIRIN 81 MG TAB.CHEW PO SCH (08:05)
[2022-07-14] MEDS: LINAGLIPTIN 5 MG TABLET PO SCH (08:05)
[2022-07-14] MEDS: FERROUS SULFATE 325 MG TABEC PO SCH ×2 (08:05→16:20)
[2022-07-14] MEDS: TRAMADOL HCL 50 MG TABLET PO PRN ×2 (08:06→20:50)
[2022-07-14] MEDS: LIDOCAINE 5% PATCH TD SCH (08:06)
[2022-07-14] MEDS: FUROSEMIDE 40 MG/4 ML VIAL IV SCH ×2 (08:06→20:49)
[2022-07-14] MEDS: REMEDY ESSENTIAL ZINC PASTE 113 GM TP PRN ×2 (08:07→20:42)
[2022-07-14] MEDS: CLOPIDOGREL 75 MG TABLET PO SCH (08:08)
[2022-07-14] MEDS: CALCIUM CARBONATE 500 MG TABLET PO SCH (08:08)
[2022-07-14] MEDS: CILOSTAZOL 100 MG TABLET PO SCH (08:10)
--- NOTE | 2022-07-14 10:45 | NUR ---
DR MOLINA IN AND EXAMINED PATIENT WITH ORDER TO CONTINUE AMIODARONE DRIP FOR ANOTHER 1 MORE DAY. PATIENT REMAINS ON 2-1 FLUTTER 0N THE 130/MIN
[2022-07-14] MEDS ORDERED: LACTULOSE 20 G/30 ML LIQUID UDC PO ONE (11:00)
[2022-07-14] MEDS: ACETAMINOPHEN 325 MG TABLET PO PRN ×2 (11:59→23:01)
[2022-07-14] MEDS: MIRALAX 17 GM POWD.PACK PO SCH (11:59)
[2022-07-14 12:00] VITALS: BP 103/45
[2022-07-14 16:00] VITALS: BP 93/52
[2022-07-14] MEDS: MIRTAZAPINE 15 MG TABLET PO SCH (17:18)
--- NOTE | 2022-07-14 19:54 | NUR ---
rounds made patient in bed awake ,alert and able to verbalized needs .called respiratory therapist to give patient breathing treatment patient noted to be sob upon exertion and mild wheezing noted .saturation 100 % rr 20.on 02 nasal cannula at 2 l/min . hob up . f/c to bsd with yellowish urine . patient on amiodarone drip and as per endorsement dr: wants amiodarone drip for another day .no s/s of pain .
--- NOTE | 2022-07-14 20:29 | NUR ---
fingerstick done and patient blood glucose 147 , given Lantus insulin and regular insulin sliding scale .due routine medication given patient able to swallow tablet .
[2022-07-14 20:46] VITALS: BP 108/60
[2022-07-14] MEDS: INSULIN GLARGINE,HUM 300 UNITS/3 ML CARTRIDGE SQ SCH (20:48)
[2022-07-14] MEDS: APIXABAN 2.5 MG TABLET PO SCH (20:49)
[2022-07-14] MEDS: DOCUSATE SODIUM 100 MG CAPSULE PO SCH (20:49)
--- NOTE | 2022-07-14 20:50 | NUR ---
given Ultram table c/o pain request for pain medication generalized body pain . patient took medication with water .
[2022-07-14] MEDS ORDERED: ENOXAPARIN SODIUM 30 MG/0.3 ML DISP.SYRIN SUBCUT SCH (21:00)
--- NOTE | 2022-07-14 23:00 | NUR ---
right medial foot wound culture done ,send specimen to the lab.
--- NOTE | 2022-07-14 23:01 | NUR ---
given Tylenol c/o patient request for pain verbalized right and left side of her abdomen pain and generalized pain .
[2022-07-15 00:49] VITALS: BP 102/52
[2022-07-15 04:49] VITALS: BP 104/56
--- NOTE | 2022-07-15 05:30 | NUR ---
patient called and verbalized that shes not feeling good and that maybe her sugar is low .checked blood sugar fingerstick done 180.given vanilla pudding .
[2022-07-15] MEDS: ONDANSETRON 4 MG/2 ML VIAL IV PRN (05:36)
--- NOTE | 2022-07-15 05:36 | NUR ---
given Zofran patient verbalized shes nauseous .
[2022-07-15] MEDS: PANTOPRAZOLE SODIUM 40 MG TABLET.DR PO SCH (06:15)
[2022-07-15 06:17] LABS: HEMATOCRIT 36.6 % (31.2-41.9); MEAN CORPUSCULAR HEMOGLOBIN 31.3 uug (24.7-32.8); MEAN CORPUSCULAR VOLUME 95.5 fL (75.5-95.3); PLATELET COUNT (AUTO) 139 K/uL (179-408)
[2022-07-15] MEDS: BLOOD SUGAR DIAGNOSTIC 1 EACH STRIP VI SCH ×4 (06:33→22:04)
[2022-07-15 06:35] LABS: ALANINE AMINOTRANSFERASE 14 U/L (14-59); ALKALINE PHOSPHATASE 59 U/L (50-136); ASPARTATE AMINOTRANSFERASE 56 U/L (15-37); CARBON DIOXIDE 23 mmol/L (21-32); CHLORIDE 95 mmol/L (98-107); CREATININE 1.6 mg/dL (0.6-1.3); GLUCOSE 229 mg/dL (74-106); MAGNESIUM 2.3 mg/dL (1.8-2.4); POTASSIUM 4.1 mmol/L (3.5-5.1); TOTAL PROTEIN, SERUM 6.6 g/dL (6.4-8.2); UREA NITROGEN, BLOOD 50 mg/dL (7-18)
--- NOTE | 2022-07-15 08:00 | NUR ---
AWAKE ALERT AND VERBALLY RESPONSIVE NO SS OF DISTRESS. STILL ON AMIODARONE DRIP O.5 MG/HR. HR SUSTAINING ON SR ON THE 80"S. CONTINUE WITH MECCA STATUS
[2022-07-15] MEDS: INSULIN REGULAR, HUMAN 300 UNIT/3 ML VIAL SQ PRN ×3 (08:04→22:07)
[2022-07-15] MEDS: AMIODARONE HCL IV 450 MG in IV DEXTROSE 5% 250 ML IV PRN (08:07)
[2022-07-15] MEDS: MIRALAX 17 GM POWD.PACK PO SCH (08:26)
[2022-07-15] MEDS: LIDOCAINE 5% PATCH TD SCH (08:26)
[2022-07-15] MEDS: FERROUS SULFATE 325 MG TABEC PO SCH ×2 (08:27→16:54)
[2022-07-15] MEDS: FUROSEMIDE 40 MG/4 ML VIAL IV SCH ×3 (08:27→22:08)
[2022-07-15] MEDS: MULTIVIT, IRON, MIN NO. 8, FA TABLET PO SCH (08:27)
[2022-07-15] MEDS: LINAGLIPTIN 5 MG TABLET PO SCH (08:27)
[2022-07-15] MEDS: ASPIRIN 81 MG TAB.CHEW PO SCH (08:27)
[2022-07-15] MEDS: CILOSTAZOL 100 MG TABLET PO SCH (08:27)
[2022-07-15] MEDS: CALCIUM CARBONATE 500 MG TABLET PO SCH (08:27)
[2022-07-15] MEDS: busPIRone 10 MG TABLET PO SCH ×3 (08:27→16:54)
[2022-07-15] MEDS: DOCUSATE SODIUM 100 MG CAPSULE PO SCH ×2 (08:27→22:04)
[2022-07-15] MEDS: HYDROCORTISONE 2.5% CREAM 20 GM TUBE TOP SCH ×2 (08:28→16:55)
[2022-07-15] MEDS: SILVER SULFADIAZINE 1% CREAM 50 GM TP SCH ×2 (08:28→16:55)
[2022-07-15] MEDS: REMEDY ESSENTIAL ZINC PASTE 113 GM TP PRN (08:29)
[2022-07-15] MEDS: APIXABAN 2.5 MG TABLET PO SCH ×2 (08:31→22:06)
[2022-07-15 09:19] VITALS: BP 124/73
[2022-07-15] MEDS: AMIODARONE HCL 200 MG TABLET PO SCH ×2 (09:34→22:05)
[2022-07-15] MEDS: TRAMADOL HCL 50 MG TABLET PO PRN ×2 (09:34→22:07)
--- NOTE | 2022-07-15 12:00 | NUR ---
SEEN BY DR HERNANDEZ AND IM SEE NOTES. PATIENT REMAINS ON SR
[2022-07-15 12:07] VITALS: BP 98/49
[2022-07-15] MEDS: ACETAMINOPHEN 325 MG TABLET PO PRN (16:54)
[2022-07-15 17:19] VITALS: BP 108/46
[2022-07-15] MEDS: MIRTAZAPINE 15 MG TABLET PO SCH (17:23)
--- NOTE | 2022-07-15 18:50 | NUR ---
TOLERATING SITTING ON CHAIR WITH O2 AT 2L NC SATURATING 96%, NO SIGNS OF ACUTE DISTRESS. IN AND OUT SR/ST 80-110
[2022-07-15] MEDS: INSULIN GLARGINE,HUM 300 UNITS/3 ML CARTRIDGE SQ SCH (22:09)
[2022-07-16 00:21] VITALS: BP 105/46
[2022-07-16 04:48] VITALS: BP 118/55
[2022-07-16] MEDS: FUROSEMIDE 40 MG/4 ML VIAL IV SCH ×3 (06:09→21:18)
[2022-07-16] MEDS: PANTOPRAZOLE SODIUM 40 MG TABLET.DR PO SCH (06:09)
[2022-07-16] MEDS: BLOOD SUGAR DIAGNOSTIC 1 EACH STRIP VI SCH ×4 (06:10→20:17)
[2022-07-16 06:46] LABS: MEAN CORPUSCULAR HEMOGLOBIN 31.6 uug (24.7-32.8); MEAN CORPUSCULAR VOLUME 96.4 fL (75.5-95.3); PLATELET COUNT (AUTO) 138 K/uL (179-408)
[2022-07-16 07:12] LABS: CARBON DIOXIDE 26 mmol/L (21-32); CHLORIDE 93 mmol/L (98-107); CREATININE 1.7 mg/dL (0.6-1.3); GLUCOSE 142 mg/dL (74-106); MAGNESIUM 2.3 mg/dL (1.8-2.4); POTASSIUM 4.5 mmol/L (3.5-5.1); UREA NITROGEN, BLOOD 56 mg/dL (7-18)
--- NOTE | 2022-07-16 07:20 | NUR ---
PATIENT REC'D IN BED, AWAKE, ALERT, ABLE TO VERBALIZE HER NEEDS AND FOLLOW COMMANDS. NO PHYSICAL OR RESPIRATORY DISTRESS NOTED, PATIENT DENIES PAIN. REPOSITIONED TO PROMOTE COMFORT AND FACILITATE PRESSURE RELIEF. SAFETY MEASURES IN PLACE. CALL LIGHT AT REACH, NO UNUSUAL FINDINGS.
[2022-07-16 08:06] LABS: NEUTROPHILS % (MANUAL) 0 % (42-75)
[2022-07-16] MEDS: ASPIRIN 81 MG TAB.CHEW PO SCH (08:14)
[2022-07-16] MEDS: busPIRone 10 MG TABLET PO SCH ×3 (08:14→16:32)
[2022-07-16] MEDS: FERROUS SULFATE 325 MG TABEC PO SCH ×2 (08:14→16:32)
[2022-07-16] MEDS: CALCIUM CARBONATE 500 MG TABLET PO SCH (08:14)
[2022-07-16] MEDS: AMIODARONE HCL 200 MG TABLET PO SCH ×2 (08:15→20:21)
[2022-07-16] MEDS: DOCUSATE SODIUM 100 MG CAPSULE PO SCH ×2 (08:15→20:17)
[2022-07-16] MEDS: APIXABAN 2.5 MG TABLET PO SCH ×2 (08:15→20:17)
[2022-07-16] MEDS: HYDROCORTISONE 2.5% CREAM 20 GM TUBE TOP SCH ×2 (08:27→16:33)
[2022-07-16] MEDS: LINAGLIPTIN 5 MG TABLET PO SCH (08:30)
[2022-07-16] MEDS: MULTIVIT, IRON, MIN NO. 8, FA TABLET PO SCH (08:30)
[2022-07-16] MEDS: METOPROLOL SUCCINATE XL 50 MG TAB.SR.24H PO SCH ×2 (08:31→21:13)
[2022-07-16] MEDS: MIRALAX 17 GM POWD.PACK PO SCH (08:32)
[2022-07-16] MEDS: LIDOCAINE 5% PATCH TD SCH ×2 (08:32→08:39)
[2022-07-16] MEDS: SILVER SULFADIAZINE 1% CREAM 50 GM TP SCH ×2 (08:38→16:33)
[2022-07-16] MEDS: INSULIN REGULAR, HUMAN 300 UNIT/3 ML VIAL SQ PRN ×4 (08:44→20:18)
[2022-07-16 12:03] VITALS: BP 111/49
[2022-07-16] MEDS: ALBUTEROL SULFATE 1.25 MG/3 ML NEBU NEB PRN (13:50)
--- NOTE | 2022-07-16 15:07 | NUR ---
patient complaining of gas pain, Dr Alexandre made aware. will continue to monitor.
[2022-07-16] MEDS ORDERED: MAG HYDROX/AL HYDROX/SIMETH 30 ML LIQUID UDC PO PRN (15:45)
[2022-07-16] MEDS ORDERED: CALCIUM CARBONATE 500 MG TAB.CHEW PO PRN (15:45)
[2022-07-16 17:04] VITALS: BP 119/50
[2022-07-16] MEDS: MIRTAZAPINE 15 MG TABLET PO SCH (17:26)
--- NOTE | 2022-07-16 18:37 | NUR ---
PATIENT IN BED, NO RESPIRATORY DISTRESS NOTED; AWAKE, DENIES ANY DISCOMFORT. HAD A LARGE SOFT FORMED BM, CLEANED AND REPOSITIONED. F/CATH DRAINING TO GRAVITY, NO C/O BLADDER DISCOMFORT, URINE YELLOW NORMAL. SAFETY MEASURES IN PLACE AND CALL LIGHT AT REACH.
--- NOTE | 2022-07-16 19:30 | NUR ---
Received patient lying in bed. In no apparent distress. No complain of pain or SOB. O2 at 3LPM via NC in place. O2 sat at 100%. LUCRETIA midline intact and patent. NSR on tele with HR of 79/min. Needs assessed and attended to. Safety measure initiated and call light within reached.
[2022-07-16 20:00] VITALS: BP 113/53
[2022-07-16] MEDS: ACETAMINOPHEN 325 MG TABLET PO PRN (20:17)
[2022-07-16] MEDS: INSULIN GLARGINE,HUM 300 UNITS/3 ML CARTRIDGE SQ SCH (20:18)
[2022-07-16] MEDS: ONDANSETRON 4 MG/2 ML VIAL IV PRN (20:31)
[2022-07-17] VITALS: BP 105/46
[2022-07-17 04:00] VITALS: BP 106/48
[2022-07-17] MEDS: FUROSEMIDE 40 MG/4 ML VIAL IV SCH ×2 (06:00→15:12)
[2022-07-17] MEDS: PANTOPRAZOLE SODIUM 40 MG TABLET.DR PO SCH (06:00)
[2022-07-17 06:08] LABS: HEMATOCRIT 36.1 % (31.2-41.9); MEAN CORPUSCULAR HEMOGLOBIN 30.9 uug (24.7-32.8); PLATELET COUNT (AUTO) 136 K/uL (179-408)
[2022-07-17 06:13] LABS: NEUTROPHILS % (MANUAL) 0 % (42-75)
[2022-07-17 06:14] LABS: CREATININE 1.3 mg/dL (0.6-1.3); MAGNESIUM 2.3 mg/dL (1.8-2.4); POTASSIUM 4.8 mmol/L (3.5-5.1)
[2022-07-17] MEDS: BLOOD SUGAR DIAGNOSTIC 1 EACH STRIP VI SCH ×4 (06:37→21:00)
--- NOTE | 2022-07-17 06:38 | NUR ---
In no apparent distress. No complain of pain or SOB. No further vomiting noted after given Zofran IV PRN. O2 at 3LPM via NC in place. O2 sat at 100%. LUCRETIA midline intact and patent. NSR on tele with HR of 65/min. Needs assessed and attended to. Safety measure maintained and call light within reached.
--- NOTE | 2022-07-17 08:00 | NUR ---
AWAKE ALERT AND VERBALLY RESPONSIVE, SLIGHT SOB ON EXERTION WITH 3L NC SATURATING 100%, C/O GENERALIZED PAIN WILL CONTINUE PAIN MANAGEMENT ORDERED. SR ON MONITOR
[2022-07-17] MEDS: MIRALAX 17 GM POWD.PACK PO SCH (08:24)
[2022-07-17] MEDS: LIDOCAINE 5% PATCH TD SCH ×2 (08:24)
[2022-07-17] MEDS: DOCUSATE SODIUM 100 MG CAPSULE PO SCH ×2 (08:24→21:00)
[2022-07-17] MEDS: FERROUS SULFATE 325 MG TABEC PO SCH ×2 (08:24→16:56)
[2022-07-17] MEDS: LINAGLIPTIN 5 MG TABLET PO SCH (08:25)
[2022-07-17] MEDS: TRAMADOL HCL 50 MG TABLET PO PRN (08:25)
[2022-07-17] MEDS: AMIODARONE HCL 200 MG TABLET PO SCH ×2 (08:25→21:00)
[2022-07-17] MEDS: MULTIVIT, IRON, MIN NO. 8, FA TABLET PO SCH (08:25)
[2022-07-17] MEDS: busPIRone 10 MG TABLET PO SCH ×3 (08:26→16:56)
[2022-07-17] MEDS: ASPIRIN 81 MG TAB.CHEW PO SCH (08:26)
[2022-07-17] MEDS: ALBUTEROL SULFATE 1.25 MG/3 ML NEBU NEB PRN (08:26)
[2022-07-17] MEDS: METOPROLOL SUCCINATE XL 50 MG TAB.SR.24H PO SCH ×2 (08:26→21:00)
[2022-07-17] MEDS: APIXABAN 2.5 MG TABLET PO SCH ×2 (08:27→21:00)
[2022-07-17] MEDS: HYDROCORTISONE 2.5% CREAM 20 GM TUBE TOP SCH ×2 (08:28→16:56)
[2022-07-17] MEDS: SILVER SULFADIAZINE 1% CREAM 50 GM TP SCH ×2 (08:28→16:56)
[2022-07-17] MEDS: CALCIUM CARBONATE 500 MG TABLET PO SCH (08:29)
[2022-07-17] MEDS: GLUCERNA SHAKE 237 ML CAN PO SCH (08:29)
[2022-07-17] MEDS: INSULIN REGULAR, HUMAN 300 UNIT/3 ML VIAL SQ PRN ×2 (11:44→23:23)
[2022-07-17 12:16] VITALS: BP 101/40
[2022-07-17] MEDS ORDERED: BISACODYL 10 MG SUPP.RECT RC PRN (16:15)
[2022-07-17] MEDS ORDERED: DOCUSATE SODIUM 100 MG CAPSULE PO PRN (16:15)
[2022-07-17] MEDS ORDERED: SIMETHICONE 80 MG TAB.CHEW PO PRN (16:15)
[2022-07-17 16:24] VITALS: BP 102/45
[2022-07-17] MEDS: MIRTAZAPINE 15 MG TABLET PO SCH (17:13)
[2022-07-17] MEDS ORDERED: BUMETANIDE INJ 6 MG in IV DEXTROSE 5% 36 ML IV ONE (19:15)
--- NOTE | 2022-07-17 19:40 | NUR ---
Pt is alert, oriented, no distress, speaking in full sentences. Midline on the left upper arm intact
[2022-07-17] MEDS ORDERED: BUMETANIDE 2.5 MG/10 ML VIAL ONE ×2 (19:56→21:19)
[2022-07-17 20:00] VITALS: BP 151/73
[2022-07-17] MEDS: SENNOSIDES 1 TABLET PO SCH (21:00)
[2022-07-17] MEDS: INSULIN GLARGINE,HUM 300 UNITS/3 ML CARTRIDGE SQ SCH (21:00)
--- NOTE | 2022-07-17 21:42 | NUR ---
removed a vial of bumex from ER by Mariah baum/jose Grace. Removed another 3 vials of bumex c/o Sanjay ENG in ER. Will return a vial of bumex to ER since the conc endorsed by the pharmacy is 6mg in 36 ml of D5. Total volume of 60 ml.
[2022-07-17] MEDS: ACETAMINOPHEN 325 MG TABLET PO PRN (23:13)
[2022-07-18 01:28] VITALS: BP 110/45
[2022-07-18 04:00] VITALS: BP 113/48
[2022-07-18] MEDS: PANTOPRAZOLE SODIUM 40 MG TABLET.DR PO SCH (06:25)
[2022-07-18] MEDS: BLOOD SUGAR DIAGNOSTIC 1 EACH STRIP VI SCH ×4 (06:36→21:58)
--- NOTE | 2022-07-18 06:36 | NUR ---
Pt's capillary blood sugar check resulted to 78mg/dl. Pt offered chocolate pudding and tolerated well.
[2022-07-18 06:39] LABS: HEMATOCRIT 34.3 % (31.2-41.9); MEAN CORPUSCULAR HEMOGLOBIN 31.6 uug (24.7-32.8); MEAN CORPUSCULAR VOLUME 95.2 fL (75.5-95.3); PLATELET COUNT (AUTO) 163 K/uL (179-408)
[2022-07-18 06:53] LABS: CARBON DIOXIDE 29 mmol/L (21-32); CHLORIDE 95 mmol/L (98-107); CREATININE 1.5 mg/dL (0.6-1.3); GLUCOSE 77 mg/dL (74-106); MAGNESIUM 2.2 mg/dL (1.8-2.4); POTASSIUM 4.5 mmol/L (3.5-5.1); UREA NITROGEN, BLOOD 59 mg/dL (7-18)
[2022-07-18 06:55] LABS: NEUTROPHILS % (MANUAL) 0 % (42-75)
--- NOTE | 2022-07-18 07:46 | NUR ---
Report given to Awa.
--- NOTE | 2022-07-18 08:00 | NUR ---
received sitting in chair, on , denies of pain, no distress noted, tele SR with LBBB and occasion A-pacing, needs attended and safety measures maintained
[2022-07-18] MEDS: DOCUSATE SODIUM 100 MG CAPSULE PO SCH ×2 (08:40→21:53)
[2022-07-18] MEDS: ASPIRIN 81 MG TAB.CHEW PO SCH (08:40)
[2022-07-18] MEDS: CALCIUM CARBONATE 500 MG TABLET PO SCH (08:40)
[2022-07-18] MEDS: busPIRone 10 MG TABLET PO SCH ×3 (08:41→17:17)
[2022-07-18] MEDS: LINAGLIPTIN 5 MG TABLET PO SCH (08:41)
[2022-07-18] MEDS: MIRALAX 17 GM POWD.PACK PO SCH (08:41)
[2022-07-18] MEDS: MULTIVIT, IRON, MIN NO. 8, FA TABLET PO SCH (08:41)
[2022-07-18] MEDS: GLUCERNA SHAKE 237 ML CAN PO SCH (08:42)
[2022-07-18] MEDS: LIDOCAINE 5% PATCH TD SCH ×2 (08:42→08:55)
[2022-07-18] MEDS: APIXABAN 2.5 MG TABLET PO SCH ×2 (08:48→21:54)
[2022-07-18] MEDS: AMIODARONE HCL 200 MG TABLET PO SCH ×2 (08:50→22:04)
[2022-07-18] MEDS: METOPROLOL SUCCINATE XL 50 MG TAB.SR.24H PO SCH (08:51)
[2022-07-18] MEDS: FERROUS SULFATE 325 MG TABEC PO SCH ×2 (08:54→17:17)
--- NOTE | 2022-07-18 10:00 | NUR ---
PT in the room assisted back to bed with head of bed elevated, kept legs elevated, had BM soft and black in color, moderate amount- pt on iron pill, seen by hospitalist
[2022-07-18] MEDS: SILVER SULFADIAZINE 1% CREAM 50 GM TP SCH ×2 (11:13→17:47)
[2022-07-18] MEDS: HYDROCORTISONE 2.5% CREAM 20 GM TUBE TOP SCH ×2 (11:14→17:46)
[2022-07-18 11:55] VITALS: BP 109/44
[2022-07-18] MEDS: ONDANSETRON 4 MG/2 ML VIAL IV PRN (13:16)
--- NOTE | 2022-07-18 13:16 | NUR ---
c/o nausea- medicated with Zofran IV as ordered prn
[2022-07-18] MEDS ORDERED: METOLAZONE 2.5 MG TABLET PO ONE (15:15)
[2022-07-18 15:41] VITALS: BP 120/50
[2022-07-18] MEDS ORDERED: BUMETANIDE INJ 6 MG in IV DEXTROSE 5% 36 ML IV ONE (16:00)
[2022-07-18] MEDS: MIRTAZAPINE 15 MG TABLET PO SCH (17:17)
--- NOTE | 2022-07-18 17:33 | NUR ---
informed hospitalist of positive MRSA on right ankle c/s
--- NOTE | 2022-07-18 18:59 | NUR ---
no distress noted, on 3l/nc, no dyspnea noted, all needs attended and met, call light within reach, contact isolation observed for MRSA on right ankle, tele remains SR with LBBB
[2022-07-18 20:00] VITALS: BP 121/60
[2022-07-18] MEDS ORDERED: VANCOMYCIN IV 500 MG in IV DEXTROSE 5% 100 ML IV SCH (20:00)
[2022-07-18] MEDS: ACETAMINOPHEN 325 MG TABLET PO PRN (21:53)
[2022-07-18] MEDS: SENNOSIDES 1 TABLET PO SCH (21:54)
[2022-07-18] MEDS: INSULIN GLARGINE,HUM 300 UNITS/3 ML CARTRIDGE SQ SCH (21:58)
[2022-07-18] MEDS: INSULIN REGULAR, HUMAN 300 UNIT/3 ML VIAL SQ PRN (22:00)
[2022-07-19 00:19] VITALS: BP 115/57
[2022-07-19 04:35] VITALS: BP 113/49
[2022-07-19] MEDS: PANTOPRAZOLE SODIUM 40 MG TABLET.DR PO SCH (06:25)
[2022-07-19] MEDS: BLOOD SUGAR DIAGNOSTIC 1 EACH STRIP VI SCH ×4 (06:31→21:43)
[2022-07-19 07:03] LABS: MEAN CORPUSCULAR HEMOGLOBIN 31.1 uug (24.7-32.8); MEAN CORPUSCULAR VOLUME 94.9 fL (75.5-95.3); PLATELET COUNT (AUTO) 165 K/uL (179-408)
[2022-07-19 07:09] LABS: NEUTROPHILS % (MANUAL) 0 % (42-75)
[2022-07-19 07:13] LABS: CARBON DIOXIDE 29 mmol/L (21-32); CHLORIDE 94 mmol/L (98-107); CREATININE 1.7 mg/dL (0.6-1.3); GLUCOSE 114 mg/dL (74-106); MAGNESIUM 2.3 mg/dL (1.8-2.4); PHOSPHOROUS 4.5 mg/dL (2.5-4.9); POTASSIUM 4.3 mmol/L (3.5-5.1); UREA NITROGEN, BLOOD 64 mg/dL (7-18)
--- NOTE | 2022-07-19 08:00 | NUR ---
resting in bed, assisted to chair- tolerated fairly, on 2l/nc- still with slight dyspnea with activity, tele SR with LBBB, denies of pain, abdomen soft, edema on lower extremities slightly lesser, explained plan of care, reinforcement done, call light within reach
[2022-07-19] MEDS: busPIRone 10 MG TABLET PO SCH ×3 (08:25→17:04)
[2022-07-19] MEDS: AMIODARONE HCL 200 MG TABLET PO SCH ×2 (08:25→21:43)
[2022-07-19] MEDS: LINAGLIPTIN 5 MG TABLET PO SCH (08:25)
[2022-07-19] MEDS: ASPIRIN 81 MG TAB.CHEW PO SCH (08:25)
[2022-07-19] MEDS: DOCUSATE SODIUM 100 MG CAPSULE PO SCH ×2 (08:26→21:00)
[2022-07-19] MEDS: MIRALAX 17 GM POWD.PACK PO SCH (08:26)
[2022-07-19] MEDS: MULTIVIT, IRON, MIN NO. 8, FA TABLET PO SCH (08:26)
[2022-07-19] MEDS: CALCIUM CARBONATE 500 MG TABLET PO SCH (08:26)
[2022-07-19] MEDS: LIDOCAINE 5% PATCH TD SCH ×2 (08:26→08:30)
[2022-07-19] MEDS: APIXABAN 2.5 MG TABLET PO SCH ×2 (08:27→21:39)
[2022-07-19] MEDS: GLUCERNA SHAKE 237 ML CAN PO SCH (08:27)
[2022-07-19] MEDS: FERROUS SULFATE 325 MG TABEC PO SCH ×2 (08:30→17:04)
[2022-07-19] MEDS: SILVER SULFADIAZINE 1% CREAM 50 GM TP SCH ×2 (10:41→17:12)
[2022-07-19] MEDS: HYDROCORTISONE 2.5% CREAM 20 GM TUBE TOP SCH ×2 (10:41→17:12)
--- NOTE | 2022-07-19 10:45 | NUR ---
right leg, ankle and top of right foot treatment done as ordered
[2022-07-19 11:00] VITALS: BP 119/44
[2022-07-19] MEDS ORDERED: VANCOMYCIN IV 500 MG in IV DEXTROSE 5% 100 ML IV ONE (12:00)
[2022-07-19] MEDS: INSULIN REGULAR, HUMAN 300 UNIT/3 ML VIAL SQ PRN ×3 (12:30→21:41)
--- NOTE | 2022-07-19 15:00 | NUR ---
nasal mucosal dry and had slight bleeding but stopped right away, placed humidifier for 02- no further bleeding noted
[2022-07-19 15:38] VITALS: BP 115/61
[2022-07-19] MEDS: MIRTAZAPINE 15 MG TABLET PO SCH (17:04)
[2022-07-19] MEDS ORDERED: METOLAZONE 2.5 MG TABLET PO ONE (17:30)
[2022-07-19] MEDS ORDERED: BUMETANIDE INJ 6 MG in IV DEXTROSE 5% 36 ML IV ONE (18:00)
--- NOTE | 2022-07-19 18:26 | NUR ---
no distress noted, remains on SR LBBB, on O2 at 2l/nc - sat at 97%, sleeping at this time, needs attended, Dr Barksdale placed orders and given, treatments on right leg done, contact isolation observed, call light within reach
[2022-07-19 20:00] VITALS: BP 123/53
[2022-07-19] MEDS: SENNOSIDES 1 TABLET PO SCH (21:00)
[2022-07-19] MEDS: ACETAMINOPHEN 325 MG TABLET PO PRN (21:38)
[2022-07-19] MEDS: INSULIN GLARGINE,HUM 300 UNITS/3 ML CARTRIDGE SQ SCH (21:40)
[2022-07-20] VITALS: BP 120/50
[2022-07-20] MEDS: HYDROCODONE/APAP 5-325MG TABLET PO PRN ×3 (00:37→17:48)
[2022-07-20 04:00] VITALS: BP 133/50
--- NOTE | 2022-07-20 05:16 | NUR ---
pt c/o pain twice; initially had a norco with good results, 2nd c/o pain, initially asked for norco but refused; 2nd noorco wasted with RN TASHI; agosto output is 1500 ml from having Bumex drip.
[2022-07-20] MEDS: PANTOPRAZOLE SODIUM 40 MG TABLET.DR PO SCH (06:19)
[2022-07-20] MEDS: BLOOD SUGAR DIAGNOSTIC 1 EACH STRIP VI SCH ×4 (06:20→20:40)
[2022-07-20 07:06] LABS: HEMATOCRIT 36.5 % (31.2-41.9); MEAN CORPUSCULAR HEMOGLOBIN 31.4 uug (24.7-32.8); MEAN CORPUSCULAR VOLUME 95.6 fL (75.5-95.3); PLATELET COUNT (AUTO) 157 K/uL (179-408)
[2022-07-20 07:18] LABS: CARBON DIOXIDE 29 mmol/L (21-32); CHLORIDE 94 mmol/L (98-107); CREATININE 1.6 mg/dL (0.6-1.3); GLUCOSE 106 mg/dL (74-106); MAGNESIUM 2.1 mg/dL (1.8-2.4); PHOSPHOROUS 4.4 mg/dL (2.5-4.9); POTASSIUM 3.2 mmol/L (3.5-5.1); UREA NITROGEN, BLOOD 67 mg/dL (7-18); VANCOMYCIN,RANDOM 9.1 ug/mL (18.0-26.0)
[2022-07-20 07:23] LABS: NEUTROPHILS % (MANUAL) 0 % (42-75)
[2022-07-20] MEDS: AMIODARONE HCL 200 MG TABLET PO SCH ×2 (09:54→20:38)
[2022-07-20] MEDS: LINAGLIPTIN 5 MG TABLET PO SCH (09:54)
[2022-07-20] MEDS: FERROUS SULFATE 325 MG TABEC PO SCH ×2 (09:54→17:31)
[2022-07-20] MEDS: ASPIRIN 81 MG TAB.CHEW PO SCH (09:54)
[2022-07-20] MEDS: busPIRone 10 MG TABLET PO SCH ×3 (09:54→17:31)
[2022-07-20] MEDS: CALCIUM CARBONATE 500 MG TABLET PO SCH (09:54)
[2022-07-20] MEDS: DOCUSATE SODIUM 100 MG CAPSULE PO SCH ×2 (09:55→20:39)
[2022-07-20] MEDS: APIXABAN 2.5 MG TABLET PO SCH ×2 (09:56→20:38)
[2022-07-20] MEDS: GLUCERNA SHAKE 237 ML CAN PO SCH (09:57)
[2022-07-20] MEDS: MIRALAX 17 GM POWD.PACK PO SCH (09:57)
[2022-07-20] MEDS: LIDOCAINE 5% PATCH TD SCH ×2 (09:57)
[2022-07-20] MEDS: SILVER SULFADIAZINE 1% CREAM 50 GM TP SCH ×2 (09:58→16:55)
[2022-07-20] MEDS: HYDROCORTISONE 2.5% CREAM 20 GM TUBE TOP SCH ×2 (09:58→16:54)
[2022-07-20] MEDS ORDERED: POTASSIUM CHLORIDE 10 MEQ TAB.PRT.SR PO ONE (10:00)
[2022-07-20] MEDS: MULTIVIT, IRON, MIN NO. 8, FA TABLET PO SCH (10:09)
[2022-07-20] MEDS ORDERED: METOLAZONE 2.5 MG TABLET PO ONE (10:30)
[2022-07-20] MEDS ORDERED: VANCOMYCIN IV 750 MG in IV DEXTROSE 5% 250 ML IV ONE (12:00)
[2022-07-20] MEDS: INSULIN REGULAR, HUMAN 300 UNIT/3 ML VIAL SQ PRN ×2 (12:04→17:32)
[2022-07-20 12:50] VITALS: BP 114/48
[2022-07-20] MEDS ORDERED: BUMETANIDE INJ 6 MG in IV DEXTROSE 5% 36 ML IV ONE (14:00)
[2022-07-20 15:40] VITALS: BP 126/44
[2022-07-20] MEDS: MIRTAZAPINE 15 MG TABLET PO SCH (17:31)
[2022-07-20] MEDS: SENNOSIDES 1 TABLET PO SCH (20:39)
[2022-07-20] MEDS: INSULIN GLARGINE,HUM 300 UNITS/3 ML CARTRIDGE SQ SCH (20:40)
[2022-07-20 20:44] VITALS: BP 118/47
[2022-07-21 00:16] VITALS: BP 116/46
[2022-07-21 04:23] VITALS: BP 122/46
--- NOTE | 2022-07-21 04:57 | NUR ---
pt rested well in between care; had tramadol x1 last night; repositioned for comfort; safety maintained; CHG bath done; continue to monityor; continue plan of care.
[2022-07-21] MEDS: PANTOPRAZOLE SODIUM 40 MG TABLET.DR PO SCH (06:08)
[2022-07-21] MEDS: BLOOD SUGAR DIAGNOSTIC 1 EACH STRIP VI SCH ×3 (06:10→16:41)
[2022-07-21 06:32] LABS: HEMATOCRIT 31.5 % (31.2-41.9); MEAN CORPUSCULAR HEMOGLOBIN 31.2 uug (24.7-32.8); MEAN CORPUSCULAR VOLUME 94.3 fL (75.5-95.3); PLATELET COUNT (AUTO) 146 K/uL (179-408)
[2022-07-21 06:44] LABS: CREATININE 1.3 mg/dL (0.6-1.3); MAGNESIUM 1.9 mg/dL (1.8-2.4); PHOSPHOROUS 3.9 mg/dL (2.5-4.9); VANCOMYCIN,RANDOM 13.4 ug/mL (18.0-26.0)
[2022-07-21 06:52] LABS: POTASSIUM 2.8 mmol/L (3.5-5.1)
[2022-07-21] MEDS ORDERED: VANCOMYCIN IV 750 MG in IV DEXTROSE 5% 250 ML IV ONE (08:00)
[2022-07-21] MEDS: LINAGLIPTIN 5 MG TABLET PO SCH (08:27)
[2022-07-21] MEDS: DOCUSATE SODIUM 100 MG CAPSULE PO SCH (08:27)
[2022-07-21] MEDS: ASPIRIN 81 MG TAB.CHEW PO SCH (08:27)
[2022-07-21] MEDS: CALCIUM CARBONATE 500 MG TABLET PO SCH (08:28)
[2022-07-21] MEDS: busPIRone 10 MG TABLET PO SCH ×3 (08:28→17:05)
[2022-07-21] MEDS: LIDOCAINE 5% PATCH TD SCH ×2 (08:28→09:26)
[2022-07-21] MEDS: MULTIVIT, IRON, MIN NO. 8, FA TABLET PO SCH (08:28)
[2022-07-21] MEDS: FERROUS SULFATE 325 MG TABEC PO SCH ×2 (08:28→17:05)
[2022-07-21] MEDS: APIXABAN 2.5 MG TABLET PO SCH (08:28)
[2022-07-21] MEDS: MIRALAX 17 GM POWD.PACK PO SCH (08:28)
[2022-07-21] MEDS: AMIODARONE HCL 200 MG TABLET PO SCH (08:31)
[2022-07-21] MEDS: GLUCERNA SHAKE 237 ML CAN PO SCH (08:32)
[2022-07-21] MEDS: SILVER SULFADIAZINE 1% CREAM 50 GM TP SCH (09:00)
[2022-07-21] MEDS: HYDROCORTISONE 2.5% CREAM 20 GM TUBE TOP SCH (09:00)
--- NOTE | 2022-07-21 09:00 | NUR ---
received pt in bed, a/o X4, no complains of pain, no distress
[2022-07-21] MEDS: POTASSIUM CHLORIDE 10 MEQ TAB.PRT.SR PO SCH ×2 (10:19→13:20)
[2022-07-21] MEDS: INSULIN REGULAR, HUMAN 300 UNIT/3 ML VIAL SQ PRN ×2 (11:51→16:42)
[2022-07-21 11:58] VITALS: BP 116/44
[2022-07-21] MEDS ORDERED: AMIO200T6 PO (11:58)
[2022-07-21] MEDS ORDERED: APIX2.5T PO (11:59)
[2022-07-21] MEDS ORDERED: POTASSIUM CHLORIDE 20 MEQ TAB.PRT.SR PO ONE ×2 (12:00→13:00)
--- NOTE | 2022-07-21 15:22 | NUR ---
Patient is sitting on chair, had her lunch, no complains of pain, pt condition is stable at the moment.
--- NOTE | 2022-07-21 15:48 | NUR ---
Patient verbalized that she is feeling good, getting ready to be picked up by ambulance at 5 pm. patient refused to take pictures of her lower extremity wounds because I changed her dressing earlier today and she had some pain on that area but now she said she would rather not unwrap it as she doesn't want to have any pain before she leaves
[2022-07-21 16:44] VITALS: BP 122/47
== END 2022-07-21 17:25 | DRG 280 ==
LOC: ER 15:18 → TELE3 20:58 → TELE-TD3 07-13 18:33 → MEDSURG3 07-15 11:12 → TELE3 07-15 17:45
PROVIDERS: ADMIT Nurse Practitioner Family; ATTEND Nurse Practitioner Acute Care
PROC: 05H633Z Insertion of Infusion Device into Left Subclavian Vein, Percutaneous Approach (ICD-10-PCS; principal; 2022-07-14)
PROC: B547ZZA Ultrasonography of Left Subclavian Vein, Guidance (ICD-10-PCS; 2022-07-14)
DX: I13.0 Hypertensive heart and chronic kidney disease with heart failure and stage 1 through stage 4 chronic kidney disease, or unspecified chronic kidney disease (principal); I21.A1 Myocardial infarction type 2; I50.43 Acute on chronic combined systolic (congestive) and diastolic (congestive) heart failure; N17.0 Acute kidney failure with tubular necrosis; D68.59 Other primary thrombophilia; E87.1 Hypo-osmolality and hyponatremia; I48.92 Unspecified atrial flutter; E78.5 Hyperlipidemia, unspecified; E83.39 Other disorders of phosphorus metabolism; E88.09 Other disorders of plasma-protein metabolism, not elsewhere classified; I25.10 Atherosclerotic heart disease of native coronary artery without angina pectoris; I25.2 Old myocardial infarction; I44.7 Left bundle-branch block, unspecified; I25.5 Ischemic cardiomyopathy; I77.1 Stricture of artery; N18.9 Chronic kidney disease, unspecified; Z79.82 Long term (current) use of aspirin; Z79.84 Long term (current) use of oral hypoglycemic drugs; Z79.4 Long term (current) use of insulin; K59.00 Constipation, unspecified; Z95.0 Presence of cardiac pacemaker; Z79.899 Other long term (current) drug therapy; Z95.1 Presence of aortocoronary bypass graft; I48.0 Paroxysmal atrial fibrillation; E11.22 Type 2 diabetes mellitus with diabetic chronic kidney disease; S90.521A Blister (nonthermal), right ankle, initial encounter; X58.XXXA Exposure to other specified factors, initial encounter; Y93.9 Activity, unspecified; Y92.129 Unspecified place in nursing home as the place of occurrence of the external cause; Y99.9 Unspecified external cause status; L97.529 Non-pressure chronic ulcer of other part of left foot with unspecified severity; L97.519 Non-pressure chronic ulcer of other part of right foot with unspecified severity; E11.51 Type 2 diabetes mellitus with diabetic peripheral angiopathy without gangrene; F32.A Depression, unspecified
CPT/HCPCS: 36415; 70030-TC; 71045; 74018; 83735; 84100; 84484; 85025; 87070; 87077; 93005; 94640; 97161; A4663; A6209; G0378; J0282; J1650; J1815; J1940; J2405; J3370; J3475; J3490; J7050

== ENCOUNTER 2023-01-11 14:59 | Inpatient (IN) | payer MEDICARE, OTHER ==
[~2023-01-11] VITALS: Ht 152.4 cm; Wt 70.3 kg
[~2023-01-11 14:59] MED LIST changes: +AMIO200T6 PO; -AMLO-212 PO; +APIX2.5T PO; -CARV3.122 PO; +CILO100T PO; -CLOP75TA15 PO; -GABA-532 PO; -LINA5TAB PO; +LISI10TA29 PO; -MAGN30OR PO; +MAGN400O6 PO; -POTA-58 PO; +PREG75CA PO; -RANO500T6 PO; +SITA100T PO; +TRAM50TA2 PO; -VOLTAREN GEL1% TP
[2023-01-11 16:10] LABS: HEMATOCRIT 36.5 % (31.2-41.9); MEAN CORPUSCULAR HEMOGLOBIN 29.6 uug (24.7-32.8); MEAN CORPUSCULAR VOLUME 94.5 fL (75.5-95.3); PLATELET COUNT (AUTO) 217 K/uL (179-408)
[2023-01-11 16:26] LABS: CARBON DIOXIDE 18 mmol/L (21-32); CHLORIDE 95 mmol/L (98-107); CREATININE 1.4 mg/dL (0.6-1.3); POTASSIUM 5.9 mmol/L (3.5-5.1); UREA NITROGEN, BLOOD 70 mg/dL (7-18)
--- NOTE | 2023-01-11 16:28 | NUR ---
Pt hard IV/blood stick. starchmaker notified for midline RN to place IV. Midline RN bedside now.
[2023-01-11 16:33] LABS: GLUCOSE 331 mg/dL (74-106)
[2023-01-11 16:42] LABS: ALANINE AMINOTRANSFERASE 14 U/L (14-59); ALKALINE PHOSPHATASE 83 U/L (50-136); ASPARTATE AMINOTRANSFERASE 17 U/L (15-37); BILIRUBIN,TOTAL 1.3 mg/dL (0.2-1.0); TOTAL PROTEIN, SERUM 6.3 g/dL (6.4-8.2)
[2023-01-11] MEDS ORDERED: PIPERACILLIN SODIUM/TAZOBACTAM 3.375 G in IV DEXTROSE 5% 50 ML IV ONE (16:45)
[2023-01-11] MEDS ORDERED: INSULIN REGULAR, HUMAN 300 UNIT/3 ML VIAL IV ONE (17:00)
[2023-01-11] MEDS ORDERED: SODIUM BICARBONATE 8.4% 50 MEQ/50 ML DISP.SYRIN IV ONE ×2 (17:00→17:06)
[2023-01-11 17:02] LABS: ABG BASE EXCESS -6.3 mmol/L; ABG HCO3 17.5 mmol/L; ABG PCO2 29.7 mmHg (35.0-45.0); ABG PH 7.388 (7.350-7.450); ABG PO2 200.1 mmHg (75.0-100.0); ABG SITE LEFT BRACHIAL; ABG TOTAL HEMOGLOBIN 12.7 G/dL (12.0-16.0); COHb 1.2 % (0.5-1.5); MetHb 0.2 % (0.0-1.5); O2Hb 98.5 % (94.0-97.0); VENT MODE Nasal Cannula
[2023-01-11] MEDS ORDERED: PIPERACILLIN/TAZOBACTAM/D5W 50 ML IV ONE (17:05)
[2023-01-11] MEDS ORDERED: INSULIN REGULAR, HUMAN 300 UNIT/3 ML VIAL ONE (17:06)
[2023-01-11] MEDS ORDERED: SODIUM POLYSTYRENE SULFONATE 15 G/60 ML LIQUID UDC PO ONE (17:15)
[2023-01-11] MEDS ORDERED: ALBUMIN HUMAN 25% (12.5 GM/50 ML ) BOTTLE IV ONE (17:15)
[2023-01-11] MEDS ORDERED: VANCOMYCIN IV 1,000 MG in IV DEXTROSE 5% 250 ML IV ONE (17:15)
[2023-01-11] MEDS ORDERED: REMEDY ESSENTIAL ZINC PASTE 113 GM TP PRN (17:30)
[2023-01-11] MEDS ORDERED: MAGNESIUM HYDROXIDE 30 ML LIQUID UDC PO PRN (17:30)
[2023-01-11] MEDS ORDERED: DEXTROSE 50% 50 ML DISP.SYRIN IV PRN (17:30)
[2023-01-11] MEDS ORDERED: ONDANSETRON 4 MG/2 ML VIAL IV PRN (17:30)
[2023-01-11] MEDS ORDERED: ACETAMINOPHEN 325 MG TABLET PO PRN (17:30)
[2023-01-11] MEDS ORDERED: VANCOMYCIN IV 200 ML ONE (17:44)
[2023-01-11] MEDS ORDERED: ALBUMIN HUMAN 25% 100 ML ONE (17:45)
[2023-01-11] MEDS ORDERED: SODIUM POLYSTYRENE SULFONATE 15 G/60 ML LIQUID UDC ONE (17:46)
--- NOTE | 2023-01-11 20:18 | NUR ---
Called report to ICU
[2023-01-11] MEDS ORDERED: HEPARIN SODIUM,PORCINE 5,000 UNITS/ML VIAL SQ SCH (21:00)
[2023-01-11] MEDS: BLOOD SUGAR DIAGNOSTIC 1 EACH STRIP VI SCH (21:00)
[2023-01-11] MEDS: AMIODARONE HCL 200 MG TABLET PO SCH (21:00)
--- NOTE | 2023-01-11 21:22 | NUR ---
Rolled patient up. DAJUAN Baker made aware of patients arrival.
[2023-01-11 21:30] VITALS: BP 103/56
[2023-01-11 22:00] VITALS: BP 94/60
[2023-01-11] MEDS ORDERED: PIPERACILLIN SODIUM/TAZOBACTAM 3.375 G in IV DEXTROSE 5% 50 ML IV SCH (22:00)
[2023-01-11 22:30] VITALS: BP 97/58
[2023-01-11] MEDS: FUROSEMIDE 40 MG/4 ML VIAL IV SCH (22:55)
[2023-01-11] MEDS ORDERED: PIPERACILLIN/TAZOBACTAM/D5W 100 ML IV ONE (22:55)
[2023-01-11] MEDS: ALBUMIN HUMAN 25% 100 ML IV SCH (22:56)
[2023-01-11] MEDS: APIXABAN 2.5 MG TABLET PO SCH (22:57)
[2023-01-11] MEDS: PIPERACILLIN SODIUM/TAZOBACTAM 3.375 G in IV DEXTROSE 5% 50 ML IV SCH (22:58)
[2023-01-11 23:00] VITALS: BP 91/61
[2023-01-11] MEDS: HYDROCODONE/APAP 5-325MG TABLET PO PRN (23:24)
[2023-01-11 23:30] VITALS: BP 101/58
[2023-01-12] VITALS (21 sets, daily range): BP systolic 82–130; BP diastolic 45–80
[2023-01-12] MEDS: PIPERACILLIN SODIUM/TAZOBACTAM 3.375 G in IV DEXTROSE 5% 50 ML IV SCH (05:02)
[2023-01-12 06:08] LABS: HEMATOCRIT 35.5 % (31.2-41.9); MEAN CORPUSCULAR HEMOGLOBIN 29.6 uug (24.7-32.8); MEAN CORPUSCULAR VOLUME 93.5 fL (75.5-95.3); PLATELET COUNT (AUTO) 176 K/uL (179-408)
[2023-01-12] MEDS: ALBUMIN HUMAN 25% 100 ML IV SCH (06:09)
[2023-01-12 06:18] LABS: CARBON DIOXIDE 23 mmol/L (21-32); CHLORIDE 94 mmol/L (98-107); CREATININE 1.5 mg/dL (0.6-1.3); GLUCOSE 249 mg/dL (74-106); MAGNESIUM 2.1 mg/dL (1.8-2.4); PHOSPHOROUS 4.9 mg/dL (2.5-4.9); POTASSIUM 5.2 mmol/L (3.5-5.1); UREA NITROGEN, BLOOD 69 mg/dL (7-18)
[2023-01-12 06:28] LABS: BILIRUBIN,DIRECT 1.1 mg/dL (0.0-0.2); BILIRUBIN,TOTAL 1.6 mg/dL (0.2-1.0); TOTAL PROTEIN, SERUM 6.6 g/dL (6.4-8.2)
[2023-01-12] MEDS: BLOOD SUGAR DIAGNOSTIC 1 EACH STRIP VI SCH ×4 (06:54→21:00)
--- NOTE | 2023-01-12 07:30 | NUR ---
REPORT GIVEN TO DAJUAN SOTELO
[2023-01-12 08:47] LABS: THYROID STIMULATING HORMONE 6.24 mIU/mL (0.358-3.740)
[2023-01-12] MEDS: FUROSEMIDE 40 MG/4 ML VIAL IV SCH ×2 (09:42→21:33)
[2023-01-12] MEDS: HYDROCODONE/APAP 5-325MG TABLET PO PRN ×2 (09:43→17:09)
[2023-01-12] MEDS: ASPIRIN 81 MG TAB.CHEW PO SCH (09:43)
[2023-01-12] MEDS: PANTOPRAZOLE SODIUM 40 MG VIAL IV SCH (09:43)
[2023-01-12] MEDS: AMIODARONE HCL 200 MG TABLET PO SCH ×2 (09:44→21:34)
[2023-01-12] MEDS: APIXABAN 2.5 MG TABLET PO SCH ×2 (09:45→21:35)
[2023-01-12] MEDS: GLUCERNA SHAKE 237 ML CAN PO SCH (11:00)
[2023-01-12] MEDS ORDERED: BUMETANIDE INJ 8 MG in IV DEXTROSE 5% 48 ML IV ONE (12:00)
[2023-01-12] MEDS: PIPERACILLIN SODIUM/TAZOBACTAM 3.375 G in IV DEXTROSE 5% 100 ML IV SCH ×2 (12:09→21:09)
[2023-01-12] MEDS: INSULIN REGULAR, HUMAN 300 UNIT/3 ML VIAL SQ PRN ×2 (12:14→23:41)
--- NOTE | 2023-01-12 16:08 | NUR ---
Comfort care only denies pain at this time on High flow oxygen 25 liter 40% Fio2 weaning down and tolerating well ox saturation 99%
[2023-01-13 00:01] VITALS: BP 91/55
[2023-01-13] MEDS: PIPERACILLIN SODIUM/TAZOBACTAM 3.375 G in IV DEXTROSE 5% 100 ML IV SCH ×2 (03:07→14:23)
[2023-01-13] MEDS: IV NORMAL SALINE 250 ML IV PRN ×2 (03:16→14:40)
[2023-01-13 04:00] VITALS: BP 94/58
--- NOTE | 2023-01-13 07:30 | NUR ---
received pt in bed resting, extremities weeping, right breast redness, agosto in place, ML in tact and patent. Pt a/ox2, on 3L O2 saturating at 93%, no reports of pain at this time. 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 Pt from hospice care, here on comfort measures. will continue to monitor.
[2023-01-13] MEDS: BLOOD SUGAR DIAGNOSTIC 1 EACH STRIP VI SCH ×3 (09:37→17:21)
[2023-01-13] MEDS: INSULIN REGULAR, HUMAN 300 UNIT/3 ML VIAL SQ PRN ×3 (09:38→17:25)
[2023-01-13] MEDS: PANTOPRAZOLE SODIUM 40 MG VIAL IV SCH (09:38)
[2023-01-13] MEDS: FUROSEMIDE 40 MG/4 ML VIAL IV SCH (09:38)
[2023-01-13] MEDS: AMIODARONE HCL 200 MG TABLET PO SCH (09:39)
[2023-01-13] MEDS: ASPIRIN 81 MG TAB.CHEW PO SCH (09:39)
[2023-01-13] MEDS: APIXABAN 2.5 MG TABLET PO SCH (09:43)
[2023-01-13] MEDS: GLUCERNA SHAKE 237 ML CAN PO SCH (09:44)
[2023-01-13] MEDS ORDERED: AMOX-430 PO (13:35)
--- NOTE | 2023-01-13 18:41 | NUR ---
pt picked up by [facility] for discharge back to [facility] where pt was previously. pt alert and oriented x2, family aware of pt transfer. pt in stable condition, report given to chucky at facility. Midline removed, agosto in place, discharge paperwork, belongings, and instructions given to transport.
[2023-01-14] MEDS ORDERED: PANTOPRAZOLE SODIUM 40 MG TABLET.DR PO SCH (07:00)
== END 2023-01-13 18:41 | disposition hospice, home (50) | DRG 871 ==
LOC: ER 14:59 → CCU 20:38
PROVIDERS: ADMIT Nurse Practitioner Acute Care; ATTEND Nurse Practitioner Acute Care
PROC: 05H633Z Insertion of Infusion Device into Left Subclavian Vein, Percutaneous Approach (ICD-10-PCS; principal; 2023-01-11)
PROC: B547ZZA Ultrasonography of Left Subclavian Vein, Guidance (ICD-10-PCS; 2023-01-11)
DX: A41.9 Sepsis, unspecified organism (principal); G92.8 Other toxic encephalopathy; I21.A1 Myocardial infarction type 2; J69.0 Pneumonitis due to inhalation of food and vomit; N17.0 Acute kidney failure with tubular necrosis; I50.33 Acute on chronic diastolic (congestive) heart failure; J96.21 Acute and chronic respiratory failure with hypoxia; E87.1 Hypo-osmolality and hyponatremia; E87.20 Acidosis, unspecified; J98.11 Atelectasis; I13.0 Hypertensive heart and chronic kidney disease with heart failure and stage 1 through stage 4 chronic kidney disease, or unspecified chronic kidney disease; R65.20 Severe sepsis without septic shock; Z66 Do not resuscitate; E87.5 Hyperkalemia; D50.9 Iron deficiency anemia, unspecified; N18.32 Chronic kidney disease, stage 3b; Z79.82 Long term (current) use of aspirin; Z79.899 Other long term (current) drug therapy; Z95.0 Presence of cardiac pacemaker; Z79.4 Long term (current) use of insulin; Z95.1 Presence of aortocoronary bypass graft; Z20.822 Contact with and (suspected) exposure to COVID-19; I25.10 Atherosclerotic heart disease of native coronary artery without angina pectoris; E11.9 Type 2 diabetes mellitus without complications; E78.5 Hyperlipidemia, unspecified; I48.0 Paroxysmal atrial fibrillation; Z79.01 Long term (current) use of anticoagulants; E11.22 Type 2 diabetes mellitus with diabetic chronic kidney disease; I11.0 Hypertensive heart disease with heart failure; F03.90 Unspecified dementia, unspecified severity, without behavioral disturbance, psychotic disturbance, mood disturbance, and anxiety; Z51.5 Encounter for palliative care
CPT/HCPCS: 36415; 36600; 71045; 73060; 73090; 76770; 82803; 83605; 83735; 84100; 84443; 84481; 84484; 85025; 87040; 93005; 93307; A6209; C9113; G0378; J1815; J1940; J2405; J2543; J3370; J3490; P9047